=== PATIENT | male | born 1945 | race Caucasian/White ===

== ENCOUNTER 2018-10-07 10:17 | Inpatient (IN) | payer OTHER, MEDICARE ==
[2018-10-07] MEDS ORDERED: NORMAL SALINE 1000 ML 1,000 ML IV ONE (11:06)
[2018-10-07] MEDS ORDERED: ONDANSETRON HCL INJ/PF 4 MG/2 ML SDV IV ONE (11:06)
--- NOTE | 2018-10-07 11:07 | ER Document Report ---
ED Medical Screen (RME) - General Chief Complaint: Chest Pain Stated Complaint: CHEST PAIN, STOMACH PAIN Time Seen by Provider: 10/07/18 11:02 Primary Care Provider: EMERALD CRAIG MD [Primary Care Provider] - Follow up as needed TRAVEL OUTSIDE OF THE [place] IN LAST 30 DAYS: No - HPI Patient complains to provider of: Abdominal pain, chest pain Notes: 10/07/18 11:07 Patient is a 72-year-old male presenting to the emergency room today complaining of lower abdominal pain that has been present for the past few days with decreased appetite as well as nausea and vomiting, he also complains of left- sided chest pain which he states is more chronic in nature but dull and achy with associated shortness of breath 10/07/18 11:07 RAPID MEDICAL EVALUATION DISCLOSURE I have seen this patient as part of a Rapid Medical Evaluation and, if applicable, placed any initially appropriate orders. The patient will be seen and fully evaluated, including a full history and physical exam, by a provider (in Main ED or Fast Track) when a room becomes available. - Related Data Allergies/Adverse Reactions: aspirin Allergy (Verified 10/07/18 10:23) Iodinated Contrast- Oral and IV Dye Allergy (Verified 10/07/18 10:23) Physical Exam - Vital signs Vitals: Temp Pulse Resp BP Pulse Ox 98.3 F 64 17 168/68 H 98 10/07/18 10:51 10/07/18 10:51 10/07/18 10:51 10/07/18 10:51 10/07/18 10:51 Course - Vital Signs Vital signs: Temp Pulse Resp BP Pulse Ox 98.3 F 64 17 168/68 H 98 10/07/18 10:51 10/07/18 10:51 10/07/18 10:51 10/07/18 10:51 10/07/18 10:51 Doctor's Discharge - Discharge Referrals: EMERALD CRAIG MD [Primary Care Provider] - Follow up as needed
--- NOTE | 2018-10-07 11:38 | RADIOLOGY REPORT (SQ) ---
EXAM DESCRIPTION: CHEST 2 VIEWS COMPLETED DATE/TIME: 10/07/2018 11:28 am REASON FOR STUDY: chest pain COMPARISON: 03/20/2016 EXAM PARAMETERS: NUMBER OF VIEWS: two views TECHNIQUE: Digital Frontal and Lateral radiographic views of the chest acquired. RADIATION DOSE: NA LIMITATIONS: none FINDINGS: LUNGS AND PLEURA: No opacities, masses or pneumothorax. No pleural effusion. MEDIASTINUM AND HILAR STRUCTURES: No masses or contour abnormalities. HEART AND VASCULAR STRUCTURES: Heart normal size. No evidence for failure. BONES: No acute findings. HARDWARE: None in the chest. OTHER: No other significant finding. IMPRESSION: NO ACUTE RADIOGRAPHIC FINDING IN THE CHEST. TECHNICAL DOCUMENTATION: JOB ID: [id number] [employer]- All Rights Reserved Reading location - IP/workstation name: [email or web address]
[2018-10-07 12:00] LABS: ABSOLUTE MONOCYTES (AUTO) 0.3 10^3/uL (0.1-1.4); ABSOLUTE NEUT (AUTO) 11.9 10^3/uL (1.7-8.2); BASOPHILS % (AUTO) 0.4 % (0-2); EOSINOPHILS % (AUTO) 0.1 % (0-6); HEMATOCRIT 44.8 % (37.9-51.0); HEMOGLOBIN 15.4 g/dL (13.5-17.0); LYMPHOCYTES % (AUTO) 7.7 % (13-45); MEAN CORPUSCULAR HEMOGLOBIN 30.4 pg (27.0-33.4); MEAN CORPUSCULAR HGB CONC 34.3 g/dL (32.0-36.0); MEAN CORPUSCULAR VOLUME 88 fl (80-97); MONOCYTES % (AUTO) 2.6 % (3-13); PLATELET COUNT 167 10^3/uL (150-450); RED BLOOD COUNT 5.07 10^6/uL (4.35-5.55); RED CELL DISTRIBUTION WIDTH 13.9 % (11.5-14.0); SEGMENTED NEUTROPHILS % (AUTO) 89.2 % (42-78); TOTAL CELLS COUNTED % (AUTO) 100 %; WHITE BLOOD COUNT 13.3 10^3/uL (4.0-10.5)
[2018-10-07 12:06] LABS: AMORPHOUS SEDIMENT,URINE TRACE /HPF; APPEARANCE,URINE SLIGHTLY-CLOUDY; BILIRUBIN,URINE NEGATIVE (NEGATIVE); COLOR,URINE YELLOW; GLUCOSE, URINE 50 mg/dL (NEGATIVE); KETONES,URINE 20 mg/dL (NEGATIVE); LEUKOCYTE ESTERASE,URINE NEGATIVE (NEGATIVE); NITRITE,URINE NEGATIVE (NEGATIVE); PROTEIN,URINE NEGATIVE (NEGATIVE); URINE SPECIFIC GRAVITY 1.021; UROBILINOGEN,URINE NEGATIVE mg/dL (<2.0)
[2018-10-07] MEDS ORDERED: GLYCOPYRROLATE 1 MG/5 ML SYRINGE ONE (12:47)
[2018-10-07] MEDS ORDERED: NEOSTIGMINE METHYLSULFATE 10 MG/10 ML VIAL ONE (12:47)
[2018-10-07] MEDS ORDERED: KETOROLAC TROMETHAMINE 60 MG/2 ML SDV ONE (12:47)
[2018-10-07] MEDS ORDERED: ONDANSETRON HCL INJ/PF 4 MG/2 ML SDV ONE (12:47)
[2018-10-07] MEDS ORDERED: DEXAMETHASONE SOD PHOSPHATE INJ 4 MG/1 ML VIAL ONE (12:47)
[2018-10-07] MEDS ORDERED: METOCLOPRAMIDE HCL INJ/PF 10 MG/2 ML SDV ONE (12:47)
--- NOTE | 2018-10-07 14:39 | ER Document Report ---
ED GI/ - General Chief Complaint: Chest Pain Stated Complaint: CHEST PAIN, STOMACH PAIN Time Seen by Provider: 10/07/18 11:02 Mode of Arrival: Ambulatory Information source: Patient Notes: Patient is a 72 year old male with a history of DM, HTN, and WPW presenting to the emergency department with complaints of a constant, sharp RLQ abdominal pain that began 3 days ago. Patient reports nausea and vomiting starting this morning but denies any other associated symptoms. Patient reports being able to eat and drink okay. He states that this last normal BM was yesterday. He states that he tried to take Tylenol for the pain this morning but that it did not provide any relief. Patient reports some frequent urination, but denies burning and dysuria. He denies fever, chills, diarrhea. TRAVEL OUTSIDE OF THE [place] IN LAST 30 DAYS: No - HPI Patient complains to provider of: Abdominal pain Onset: Other - x3 days Quality of pain: Sharp Location: RLQ Associated symptoms: Nausea, Vomiting Similar symptoms previously: No - Related Data Allergies/Adverse Reactions: aspirin Allergy (Verified 10/07/18 10:23) Iodinated Contrast- Oral and IV Dye Allergy (Verified 10/07/18 10:23) Past Medical History - General Information source: Patient - Social History Smoking Status: Former Smoker Frequency of alcohol use: None Drug Abuse: None Family History: Reviewed & Not Pertinent Patient has suicidal ideation: No Patient has homicidal ideation: No - Past Medical History Cardiac Medical History: Reports: Hx Hypertension Endocrine Medical History: Reports: Hx Diabetes Mellitus Type 2 Renal/ Medical History: Denies: Hx Peritoneal Dialysis Past Surgical History: Reports: Hx Cholecystectomy Review of Systems - Review of Systems Notes: My medical REVIEW OF SYSTEMS: CONSTITUTIONAL : Denies or sweats. Denies recent illness. Denies weight loss, recent hospitalizations. EENT: Denies visual changes, eye pain. Denies sore throat, oral lesions, di fficulty swallowing. CARDIOVASCULAR: Denies chest pain. Denies palpitations. Denies lower extremity edema. RESPIRATORY: Denies cough. Denies shortness of breath, wheezing. GASTROINTESTINAL: Denies abdominal distention. Denies diarrhea. Denies blood in vomitus, stools, or per rectum. Denies black, tarry stools. Denies constipation. GENITOURINARY: Denies difficulty urinating, painful urination, frequency, blood in urine, testicular pain or penile discharge. MUSCULOSKELETAL: Denies back or neck pain or stiffness. Denies joint pain or swelling. SKIN: Denies rash, lesions or sores. HEMATOLOGIC : Denies easy bruising or bleeding. LYMPHATIC: Denies swollen glands. NEUROLOGICAL: Denies confusion or altered mental status. Denies loss of consciousness. Denies dizziness or lightheadedness. Denies headache. Denies weakness or paralysis. Denies problems difficulty with ambulation, slurred speech. Denies sensory loss, numbness, or tingling. Denies seizures. PSYCHIATRIC: Denies anxiety or stress. Denies depression, suicidal ideation, or Physical Exam - Vital signs Vitals: Temp Pulse Resp BP Pulse Ox 98.3 F 64 17 168/68 H 98 10/07/18 10:51 10/07/18 10:51 10/07/18 10:51 10/07/18 10:51 10/07/18 10:51 Interpretation: Hypertensive - Notes Notes: PHYSICAL EXAMINATION: GENERAL: Well-appearing, well-nourished and in no acute distress. HEAD: Atraumatic, normocephalic. EYES: Pupils equal round and reactive to light, extraocular movements intact, sclera anicteric, conjunctiva are normal. ENT: Nares patent, oropharynx clear without exudates. Moist mucous membranes. NECK: Normal range of motion, supple without lymphadenopathy LUNGS: Breath sounds clear to auscultation bilaterally and equal. No wheezes rales or rhonchi. HEART: Regular rate and rhythm without murmurs ABDOMEN: Soft, right lower quadrant tenderness with palpation nondistended abdomen. No guarding, no rebound. No masses appreciated. Musculoskeletal: Normal range of motion, no pitting or edema. No cyanosis. NEUROLOGICAL: Cranial nerves grossly intact. Normal speech, normal gait. Normal sensory, motor exams PSYCH: Normal mood, normal affect. SKIN: Warm, Dry, normal turgor, no rashes or lesions noted. Course - Re-evaluation Re-evalutation: 10/07/18 18:54 Laboratory 10/07/18 10/07/18 10/07/18 11:48 11:48 11:48 WBC 13.3 H RBC 5.07 Hgb 15.4 Hct 44.8 MCV 88 MCH 30.4 MCHC 34.3 RDW 13.9 Plt Count 167 Seg Neutrophils % 89.2 H Lymphocytes % 7.7 L Monocytes % 2.6 L Eosinophils % 0.1 Basophils % 0.4 Absolute Neutrophils 11.9 H Absolute Lymphocytes 1.0 Absolute Monocytes 0.3 Absolute Eosinophils 0.0 Absolute Basophils 0.0 Sodium Cancelled Potassium Cancelled Chloride Cancelled Carbon Dioxide Cancelled Anion Gap Cancelled BUN Cancelled Creatinine Cancelled Est GFR ( Amer) Cancelled Est GFR (Non-Af Amer) Cancelled Glucose Cancelled Calcium Cancelled Total Bilirubin Cancelled Direct Bilirubin Cancelled Neonat Total Bilirubin Cancelled Neonat Direct Bilirubin Cancelled Neonat Indirect Bili Cancelled AST Cancelled ALT Cancelled Alkaline Phosphatase Cancelled Troponin I Cancelled NT-Pro-B Natriuret Pep Cancelled Total Protein Cancelled Albumin Cancelled Lipase Cancelled Urine Color Urine Appearance Urine pH Ur Specific [place] Urine Protein Urine Glucose (UA) Urine Ketones Urine Blood Urine Nitrite Urine Bilirubin Urine Urobilinogen Ur Leukocyte Esterase Urine WBC (Auto) Urine RBC (Auto) Squamous Epi Cells Auto Amorphous Sediment Auto Urine Mucus (Auto) Urine Ascorbic Acid 10/07/18 10/07/18 10/07/18 11:48 14:55 14:55 WBC RBC Hgb Hct MCV MCH MCHC RDW Plt Count Seg Neutrophils % Lymphocytes % Monocytes % Eosinophils % Basophils % Absolute Neutrophils Absolute Lymphocytes Absolute Monocytes Absolute Eosinophils Absolute Basophils Sodium 138.0 Potassium 3.7 Chloride 101 Carbon Dioxide 26 Anion Gap 11 BUN 11 Creatinine 0.70 Est GFR ( Amer) > 60 Est GFR (Non-Af Amer) > 60 Glucose 197 H Calcium 9.0 Total Bilirubin 1.2 Direct Bilirubin 0.2 Neonat Total Bilirubin Not Reportable Neonat Direct Bilirubin Not Reportable Neonat Indirect Bili Not Reportable AST 24 ALT 23 Alkaline Phosphatase 65 Troponin I < 0.012 NT-Pro-B Natriuret Pep 162 Total Protein 7.0 Albumin 4.0 Lipase 10.5 L Urine Color YELLOW Urine Appearance SLIGHTLY-CLOUDY Urine pH 7.0 Ur Specific [place] 1.021 Urine Protein NEGATIVE Urine Glucose (UA) 50 H Urine Ketones 20 H Urine Blood NEGATIVE Urine Nitrite NEGATIVE Urine Bilirubin NEGATIVE Urine Urobilinogen NEGATIVE Ur Leukocyte Esterase NEGATIVE Urine WBC (Auto) 1 Urine RBC (Auto) 4 Squamous Epi Cells Auto 1 Amorphous Sediment Auto TRACE Urine Mucus (Auto) RARE Urine Ascorbic Acid NEGATIVE Chest X-Ray 10/07/18 11:06 IMPRESSION: NO ACUTE RADIOGRAPHIC FINDING IN THE CHEST. Abdomen/Pelvis CT 10/07/18 14:27 IMPRESSION: Appendicitis. No abscess. Mild fatty infiltration of the liver. Nonobstructing left renal calculi. Mild diverticulosis coli. Temp Pulse Resp BP Pulse Ox 98.3 F 64 21 H 161/70 H 93 10/07/18 10:51 10/07/18 10:51 10/07/18 18:17 10/07/18 18:17 10/07/18 18:17 10/08/18 00:26 72-year-old male presents with right lower quadrant abdominal pain. Upon arrival vitals were reviewed and patient is afebrile, hypertensive. Patient does not appear toxic or dehydrated. He did no acute distress. Exam is significant for tenderness with palpation to the right lower quadrant. CT of the abdomen and pelvis show appendicitis. Dr. Dewitt surgery on-call was consulted and has admitted the patient to the OR. Patient was made n.p.o., Zosyn was administered and LR was initiated. Patient and made aware of the situation. Patient admitted to surgery. - Vital Signs Vital signs: Temp Pulse Resp BP Pulse Ox 98.3 F 64 21 H 161/70 H 93 10/07/18 10:51 10/07/18 10:51 10/07/18 18:17 10/07/18 18:17 10/07/18 18:17 - Laboratory Result Diagrams: 10/07/18 11:48 10/07/18 14:55 Laboratory results interpreted by me: 10/07/18 10/07/18 10/07/18 11:48 11:48 14:55 WBC 13.3 H Seg Neutrophils % 89.2 H Lymphocytes % 7.7 L Monocytes % 2.6 L Absolute Neutrophils 11.9 H Glucose 197 H Lipase 10.5 L Urine Glucose (UA) 50 H Urine Ketones 20 H - Diagnostic Test Radiology reviewed: Image reviewed, Reports reviewed - EKG Interpretation by [facility] EKG shows normal: Sinus rhythm Rate: Normal Rhythm: NSR When compared to previous EKG there are: Previous EKG unavailable Discharge - Discharge Clinical Impression: Appendicitis Qualifiers: Appendicitis type: unspecified Qualified Code(s): K37 - Unspecified appendicitis Type 2 diabetes mellitus Qualifiers: Diabetes mellitus longterm insulin use: unspecified emt intermediate insulin use status Diabetes mellitus complication status: without complication Qualified Code(s): E11.9 - Type 2 diabetes mellitus without complications Hypertension Qualifiers: Hypertension type: unspecified Qualified Code(s): I10 - Essential (primary) hypertension Condition: Good Disposition: ADMITTED INPATIENT Admitting Provider: Surgicalist Unit Admitted: OR
[2018-10-07 15:30] LABS: ALANINE AMINOTRANSFERASE 23 U/L (21-72); ALKALINE PHOSPHATASE 65 U/L (38-126); ANION GAP 11 (5-19); ASPARTATE AMINO TRANSFERASE 24 U/L (17-59); BILIRUBIN,DIRECT 0.2 mg/dL (0.0-0.4); BILIRUBIN,TOTAL 1.2 mg/dL (0.2-1.3); BLOOD UREA NITROGEN 11 mg/dL (7-20); CARBON DIOXIDE 26 mmol/L (22-30); CHLORIDE 101 mmol/L (98-107); GLUCOSE 197 mg/dL (75-110); LIPASE 10.5 U/L (23-300); POTASSIUM 3.7 mmol/L (3.6-5.0)
[2018-10-07 15:43] LABS: NT PRO BNP 162 pg/mL (5-900)
[2018-10-07 15:49] LABS: TROPONIN I < 0.012 ng/mL
[2018-10-07] MEDS ORDERED: FAMOTIDINE INJ/PF 20 MG/2 ML SDV IV ONE (16:58)
[2018-10-07] MEDS ORDERED: DIPHENHYDRAMINE HCL 50 MG/ML VIAL IV ONE (16:58)
[2018-10-07] MEDS ORDERED: METHYLPREDNISOLONE INJ 125 MG/2 ML SDV IV ONE (16:58)
--- NOTE | 2018-10-07 18:24 | RADIOLOGY REPORT (SQ) ---
EXAM DESCRIPTION: CT ABD/PELVIS WITH IV ONLY COMPLETED DATE/TIME: 10/07/2018 6:11 pm REASON FOR STUDY: rlq pain COMPARISON: None. TECHNIQUE: CT scan of the abdomen and pelvis performed using helical scanning technique with dynamic intravenous contrast injection. No oral contrast. Images reviewed with lung, soft tissue, and bone windows. Reconstructed coronal and sagittal MPR images reviewed. Delayed images for evaluation of the urinary system also acquired. All images stored on PACS. All CT scanners at this facility use dose modulation, iterative reconstruction, and/or weight based d osing when appropriate to reduce radiation dose to as low as reasonably achievable (ALARA). [facility]: Dose Right [facility]: CareDose [facility]: Dose Right [facility]: Teradose 4D [facility]: Karma Snap CONTRAST TYPE AND DOSE: contrast/concentration: Isovue 300.00 mg/ml; Total Contrast Delivered: 94.0 ml; Total Saline Delivered: 57.2 ml RENAL FUNCTION: BUN 11 creatinine 0.7 RADIATION DOSE: CT Rad equipment meets quality standard of care and radiation dose reduction techniq ues were employed. CTDIvol: 20.1 - 21.1 mGy. DLP: 2304 mGy-cm.. LIMITATIONS: None. FINDINGS: LOWER CHEST: No significant findings. No nodules or infiltrates. LIVER: The liver is mildly hypoattenuating. No masses. SPLEEN: Normal size. No focal lesions. PANCREAS: No masses. No significant calcifications. No adjacent inflammation or peripancreatic fluid collections. Pancreatic duct not dilated. GALLBLADDER: Surgically absent. ADRENAL GLANDS: No significant masses or asymmetry. RIGHT KIDNEY AND URETER: No solid masses. No significant calcifications. No hydronephrosis or hyd roureter. LEFT KIDNEY AND URETER: No solid masses. There are 2 small nonobstructing intrarenal calculi. No hydronephrosis or hydroureter. AORTA AND VESSELS: No aneurysm. No dissection. Renal arteries, SMA, celiac without stenosis. RETROPERITONEUM: No retroperitoneal adenopathy, hemorrhage or masses. BOWEL AND PERITONEAL CAVITY: Mild sigmoid diverticulosis no associated inflammation. APPENDIX: There is thickening of the appendix with stranding in the periappendiceal fat. There is no abscess. PELVIS: No mass. No free fluid. Normal bladder. ABDOMINAL WALL: No masses. No hernias. BONES: No significant or acute findings. OTHER: No other significant finding. IMPRESSION: Appendicitis. No abscess. Mild fatty infiltration of the liver. Nonobstructing left r enal calculi. Mild diverticulosis coli. TECHNICAL DOCUMENTATION: JOB ID: [id number] Quality ID # [id number]: Final reports with documentation of one or more dose reduction techniques (e.g., Au tomated exposure control, adjustment of the mA and/or kV according to patient size, use of iterative reconstruction technique) 2010 [employer]- All Rights Reserved Reading location - IP/workstation name: [email or web address]
[2018-10-07] MEDS ORDERED: RINGERS SOLUTION,LACTATED 1,000 ML IV ONE (19:08)
[2018-10-07] MEDS ORDERED: PIPERACILLIN/TAZOBACTAM 3.375 GM VIAL IV ONE (19:08)
[2018-10-07] MEDS ORDERED: MIDAZOLAM 2 MG/2 ML INJ ONE ×2 (19:25→23:54)
[2018-10-07] MEDS ORDERED: LIDOCAINE 2% INJ-PF (100 MG/5 ML) SYRINGE ONE (19:25)
[2018-10-07] MEDS ORDERED: HYDROMORPHONE HCL INJ/PF 2 MG/ML AMPULE ONE (19:25)
[2018-10-07] MEDS ORDERED: ACETAMINOPHEN 1,000 MG/100 ML RTUPB IV ONE (19:26)
[2018-10-07] MEDS ORDERED: PROPOFOL INJ 200 MG/20 ML VIAL IV ONE (19:26)
--- NOTE | 2018-10-07 19:26 | PDOC H&P ---
History of Present Illness Admission Date/PCP: 10/07/18 19:11 [facility] Patient complains of: abdominal pains History of Present Illness: ERIC LOUIS is a 72 year old male diabetic, hypertensive c/o RLQ pains 2 nights ago worse yesterday associated with nausea/vomiting. Had CT today showed acute appendicitis. Past Medical History Cardiac Medical History: Reports: Hypertension Endocrine Medical History: Reports: Diabetes Mellitus Type 2 Past Surgical History Past Surgical History: Reports: Cholecystectomy Social History Smoking Status: Former Smoker Family History Family History: Reviewed & Not Pertinent Parental Family History Reviewed: Yes - + DM Children Family History Reviewed: No Sibling(s) Family History Reviewed.: Yes - + DM Medication/Allergy Allergies/Adverse Reactions: aspirin Allergy (Verified 10/07/18 10:23) Iodinated Contrast- Oral and IV Dye Allergy (Verified 10/07/18 10:23) Review of Systems Constitutional: PRESENT: as per HPI, fever(s) Eyes: PRESENT: other - no visual/hearing changes Cardiovascular: PRESENT: chest pain Respiratory: PRESENT: cough Gastrointestinal: PRESENT: abdominal pain, nausea, vomiting Genitourinary: PRESENT: other - no dysuria Physical Exam Vital Signs: Temp Pulse Resp BP Pulse Ox 98.3 F 64 21 H 161/70 H 93 10/07/18 10:51 10/07/18 10:51 10/07/18 18:17 10/07/18 18:17 10/07/18 18:17 Intake & Output 10/06/18 10/07/18 10/08/18 06:59 06:59 06:59 Intake Total 1000 Balance 1000 Weight 107.9 kg General appearance: PRESENT: mild distress Head exam: PRESENT: atraumatic Eye exam: PRESENT: conjunctiva pink Mouth exam: PRESENT: dry mucosa Neck exam: PRESENT: full ROM Respiratory exam: PRESENT: clear to auscultation roger Cardiovascular exam: PRESENT: RRR Pulses: PRESENT: normal radial pulses Vascular exam: PRESENT: normal capillary refill GI/Abdominal exam: PRESENT: soft, tenderness - RLQ Rectal exam: PRESENT: deferred Extremities exam: PRESENT: full ROM Musculoskeletal exam: PRESENT: ambulatory Neurological exam: PRESENT: alert, oriented to person, oriented to place, oriented to time, oriented to situation Psychiatric exam: PRESENT: appropriate affect Skin exam: PRESENT: normal color, warm Results Laboratory Results: 10/07/18 11:48 10/07/18 14:55 10/07/18 10/07/18 10/07/18 11:48 11:48 11:48 WBC 13.3 H RBC 5.07 Hgb 15.4 Hct 44.8 MCV 88 MCH 30.4 MCHC 34.3 RDW 13.9 Plt Count 167 Seg Neutrophils % 89.2 H Lymphocytes % 7.7 L Monocytes % 2.6 L Eosinophils % 0.1 Basophils % 0.4 Absolute Neutrophils 11.9 H Absolute Lymphocytes 1.0 Absolute Monocytes 0.3 Absolute Eosinophils 0.0 Absolute Basophils 0.0 Sodium Cancelled Potassium Cancelled Chloride Cancelled Carbon Dioxide Cancelled Anion Gap Cancelled BUN Cancelled Creatinine Cancelled Est GFR ( Amer) Cancelled Est GFR (Non-Af Amer) Cancelled Glucose Cancelled Calcium Cancelled Total Bilirubin Cancelled AST Cancelled ALT Cancelled Alkaline Phosphatase Cancelled Total Protein Cancelled Albumin Cancelled Lipase Cancelled Urine Color YELLOW Urine Appearance SLIGHTLY-CLOUDY Urine pH 7.0 Ur Specific [place] 1.021 Urine Protein NEGATIVE Urine Glucose (UA) 50 H Urine Ketones 20 H Urine Blood NEGATIVE Urine Nitrite NEGATIVE Ur Leukocyte Esterase NEGATIVE Urine WBC (Auto) 1 Urine RBC (Auto) 4 10/07/18 14:55 WBC RBC Hgb Hct MCV MCH MCHC RDW Plt Count Seg Neutrophils % Lymphocytes % Monocytes % Eosinophils % Basophils % Absolute Neutrophils Absolute Lymphocytes Absolute Monocytes Absolute Eosinophils Absolute Basophils Sodium 138.0 Potassium 3.7 Chloride 101 Carbon Dioxide 26 Anion Gap 11 BUN 11 Creatinine 0.70 Est GFR ( Amer) > 60 Est GFR (Non-Af Amer) > 60 Glucose 197 H Calcium 9.0 Total Bilirubin 1.2 AST 24 ALT 23 Alkaline Phosphatase 65 Total Protein 7.0 Albumin 4.0 Lipase 10.5 L Urine Color Urine Appearance Urine pH Ur Specific [place] Urine Protein Urine Glucose (UA) Urine Ketones Urine Blood Urine Nitrite Ur Leukocyte Esterase Urine WBC (Auto) Urine RBC (Auto) 10/07/18 10/07/18 11:48 14:55 Troponin I Cancelled < 0.012 NT-Pro-B Natriuret Pep Cancelled 162 Impressions: Chest X-Ray 10/07/18 11:06 IMPRESSION: NO ACUTE RADIOGRAPHIC FINDING IN THE CHEST. Abdomen/Pelvis CT 10/07/18 14:27 IMPRESSION: Appendicitis. No abscess. Mild fatty infiltration of the liver. Nonobstructing left renal calculi. Mild diverticulosis coli. Assessment & Plan - Diagnosis (1) Hypertension Is this a current diagnosis for this admission?: Yes (2) Type 2 diabetes mellitus Is this a current diagnosis for this admission?: Yes - Time Time Spent: 30 to 50 Minutes - Inpatient Certification Medical Necessity: Need For IV Fluids, Need for Pain Control, Need for IV Antibiotics, Need for Surgery - Plan Summary Plan Summary: Start IV antibiotics Hydrate For Lap appendectomy
[2018-10-07] MEDS ORDERED: BUPIVACAINE HCL 0.25 % INJ/PF (2.5 MG/1 ML) 30 ML VIAL ONE (19:44)
[2018-10-07] MEDS ORDERED: ONDANSETRON HCL INJ/PF 4 MG/2 ML SDV IV PRN ×2 (20:57→23:12)
[2018-10-07] MEDS ORDERED: OXYCODONE-ACETAMINOPHEN 5-325 MG TABLET PO PRN ×2 (20:57)
[2018-10-07] MEDS ORDERED: FENTANYL CITRATE INJ/PF 100 MCG/2 ML AMPUL IV PRN ×3 (20:57)
[2018-10-07] MEDS ORDERED: MEPERIDINE HCL/PF INJ 25 MG/1 ML DISP.SYRIN IV PRN (20:57)
[2018-10-07] MEDS ORDERED: DIPHENHYDRAMINE HCL 50 MG/ML VIAL IV PRN (20:57)
[2018-10-07] MEDS ORDERED: PROMETHAZINE HCL INJ 25 MG/1 ML VIAL IV PRN ×2 (20:57)
[2018-10-07] MEDS: MIDAZOLAM 2 MG/2 ML INJ ONE ×2 (23:30→23:31)
[2018-10-08] MEDS ORDERED: CHLORPROMAZINE HCL INJ 25 MG/1 ML AMPULE ONE (00:02)
--- NOTE | 2018-10-08 00:12 | EKG REPORT ---
SEVERITY:- NORMAL ECG - SINUS RHYTHM : Confirmed by: Zahra Cavanaugh 08-Oct-2018 00:12:32
--- NOTE | 2018-10-08 01:21 | PDOC CONSULTATION ---
Consultation Consult Date: 10/07/18 Attending physician:: ADI DEWITT Consult reason:: Postanesthetic delirium with combative behavior History of Present Illness Admission Date/PCP: 10/07/18 19:[facility] Patient complains of: Abdominal pain History of Present Illness: ERIC BHAT is a 72 year old male who initially presented to the emergency room with a 2-day history of right lower quadrant abdominal pain progressive in intensity and accompanied by nausea and vomiting. He was found to have acute appendicitis on his CT scan of the abdomen and was subsequently taken to the operating room by Dr. Dewitt where an open appendectomy was performed. In his postoperative recovery as he gradually woke from his anesthetic he became very combative and delirious. With these findings the consultation for hospitalist was placed and I saw the patient within 10 minutes of the original phone call. Patient was found to be very poorly responsive to verbal stimuli and was quite combative requiring 5 persons to restrain him. He was unable to provide any further information into his medical situation and no other sources of information were immediately available. Current and past medical records have been used to obtain further information. Past Medical History Cardiac Medical History: Reports: Hypertension Denies: Coronary Artery Disease Pulmonary Medical History: Denies: Asthma, Chronic Obstructive Pulmonary Disease (COPD) EENT Medical History: Reports: None Neurological Medical History: Denies: Hemorrhagic CVA, Ischemic CVA, Seizures Endocrine Medical History: Reports: Diabetes Mellitus Type 2, Obesity Denies: Diabetes Mellitus Type 1, Hyperthyroidism, Hypothyroidism Renal/ Medical History: Denies: Chronic Kidney Disease, Nephrolithiasis Malignancy Medical History: Reports: None GI Medical History: Denies: Cirrhosis, Hepatitis Musculoskeltal Medical History: Reports: None Skin Medical History: Reports: None Psychiatric Medical History: Denies: Alcohol Dependency, Substance Abuse, Tobacco Dependency Traumatic Medical History: Reports: None Hematology: Reports: None Infectious Medical History: Reports: None Past Surgical History Past Surgical History: Reports: Appendectomy - Performed just prior to my evaluation, Cholecystectomy Social History Lives with: Family Smoking Status: Former Smoker Frequency of Alcohol Use: None Hx Recreational Drug Use: No Drugs: None Hx Prescription Drug Abuse: No - Advance Directive Resuscitation Status: Full Code Surrogate healthcare decision maker:: Family History Family History: DM, Hypertension Parental Family History Reviewed: Yes Children Family History Reviewed: No Sibling(s) Family History Reviewed.: Yes Medication/Allergy Allergies/Adverse Reactions: aspirin Allergy (Verified 10/07/18 10:23) Iodinated Contrast- Oral and IV Dye Allergy (Verified 10/07/18 10:23) Review of Systems ROS unobtainable: Due to mental status Physical Exam Vital Signs: Temp Pulse Resp BP Pulse Ox 98.3 F 64 21 H 161/70 H 95 10/07/18 10:51 10/07/18 10:51 10/07/18 18:17 10/07/18 18:17 10/08/18 01:03 Intake & Output 10/06/18 10/07/18 10/08/18 23:59 23:59 23:59 Intake Total 1000 Balance 1000 Weight 107.9 kg General appearance: PRESENT: disheveled, obese, severe distress, other - Combative and flailing, uncooperative Head exam: PRESENT: atraumatic, normocephalic Eye exam: PRESENT: conjunctiva pink. ABSENT: scleral icterus Ear exam: PRESENT: normal external ear exam. ABSENT: drainage Mouth exam: PRESENT: dry mucosa, neck supple Neck exam: ABSENT: thyromegaly, tracheal deviation Respiratory exam: PRESENT: clear to auscultation roger, symmetrical, unlabored Cardiovascular exam: PRESENT: RRR. ABSENT: clicks, gallop, rubs Pulses: PRESENT: normal radial pulses, normal dorsalis pedis pul Vascular exam: PRESENT: normal capillary refill. ABSENT: pallor GI/Abdominal exam: PRESENT: normal bowel sounds, soft, other - Large dressing present in the right lower quadrant not disturbed for my evaluation Rectal exam: PRESENT: deferred Gentrourinary exam: PRESENT: indwelling catheter. ABSENT: urethral discharge Extremities exam: ABSENT: joint swelling, pedal edema Musculoskeletal exam: ABSENT: deformity, dislocation Neurological exam: PRESENT: altered - Patient is awake but delirious and combative.. ABSENT: oriented to person, oriented to place, oriented to time, oriented to situation Psychiatric exam: PRESENT: agitated, other - Uncooperative, delirious and combative Skin exam: PRESENT: dry, intact, warm. ABSENT: jaundice, rash, urticaria Results Laboratory Results: 10/07/18 11:48 10/07/18 14:55 10/07/18 10/07/18 10/07/18 11:48 11:48 11:48 WBC 13.3 H RBC 5.07 Hgb 15.4 Hct 44.8 MCV 88 MCH 30.4 MCHC 34.3 RDW 13.9 Plt Count 167 Seg Neutrophils % 89.2 H Lymphocytes % 7.7 L Monocytes % 2.6 L Eosinophils % 0.1 Basophils % 0.4 Absolute Neutrophils 11.9 H Absolute Lymphocytes 1.0 Absolute Monocytes 0.3 Absolute Eosinophils 0.0 Absolute Basophils 0.0 Sodium Cancelled Potassium Cancelled Chloride Cancelled Carbon Dioxide Cancelled Anion Gap Cancelled BUN Cancelled Creatinine Cancelled Est GFR ( Amer) Cancelled Est GFR (Non-Af Amer) Cancelled Glucose Cancelled Calcium Cancelled Total Bilirubin Cancelled AST Cancelled ALT Cancelled Alkaline Phosphatase Cancelled Total Protein Cancelled Albumin Cancelled Lipase Cancelled Urine Color YELLOW Urine Appearance SLIGHTLY-CLOUDY Urine pH 7.0 Ur Specific [place] 1.021 Urine Protein NEGATIVE Urine Glucose (UA) 50 H Urine Ketones 20 H Urine Blood NEGATIVE Urine Nitrite NEGATIVE Ur Leukocyte Esterase NEGATIVE Urine WBC (Auto) 1 Urine RBC (Auto) 4 10/07/18 14:55 WBC RBC Hgb Hct MCV MCH MCHC RDW Plt Count Seg Neutrophils % Lymphocytes % Monocytes % Eosinophils % Basophils % Absolute Neutrophils Absolute Lymphocytes Absolute Monocytes Absolute Eosinophils Absolute Basophils Sodium 138.0 Potassium 3.7 Chloride 101 Carbon Dioxide 26 Anion Gap 11 BUN 11 Creatinine 0.70 Est GFR ( Amer) > 60 Est GFR (Non-Af Amer) > 60 Glucose 197 H Calcium 9.0 Total Bilirubin 1.2 AST 24 ALT 23 Alkaline Phosphatase 65 Total Protein 7.0 Albumin 4.0 Lipase 10.5 L Urine Color Urine Appearance Urine pH Ur Specific [place] Urine Protein Urine Glucose (UA) Urine Ketones Urine Blood Urine Nitrite Ur Leukocyte Esterase Urine WBC (Auto) Urine RBC (Auto) 10/07/18 10/07/18 11:48 14:55 Troponin I Cancelled < 0.012 NT-Pro-B Natriuret Pep Cancelled 162 Impressions: Chest X-Ray 10/07/18 11:06 IMPRESSION: NO ACUTE RADIOGRAPHIC FINDING IN THE CHEST. Abdomen/Pelvis CT 10/07/18 14:27 IMPRESSION: Appendicitis. No abscess. Mild fatty infiltration of the liver. Nonobstructing left renal calculi. Mild diverticulosis coli. Assessment & Plan - Diagnosis (1) Acute delirium Is this a current diagnosis for this admission?: Yes Plan: Patient's acute delirium was treated with IV Thorazine 25 mg every 8 hours as needed for control of agitation. (2) Acute appendicitis Is this a current diagnosis for this admission?: Yes Plan: Patient's acute appendicitis and postsurgical management will be performed by Dr. Dewitt (3) Hypertension Qualifiers: Hypertension type: essential hypertension Qualified Code(s): I10 - Essential (primary) hypertension Is this a current diagnosis for this admission?: Yes Plan: Patient is noted to have a history of essential hypertension however he was somewhat hypotensive postoperatively and this will be managed closely with IV fluid resuscitation and further intervention as required. (4) Diabetes mellitus type 2 in obese Is this a current diagnosis for this admission?: Yes Plan: Patient's diabetes will be managed postoperatively by the hospitalist team. We will start with sliding scale insulin only and add his usual diabetic therapy when he begins to take a diet. - Time Time Spent: 50 to 70 Minutes Smoking Cessation Education: over 10 minutes Medications reviewed and adjusted accordingly: Yes Anticipated discharge: Home - Inpatient Certification Based on my medical assessment, after consideration of the patient's comorbidities, presenting symptoms, or acuity I expect that the services needed warrant INPATIENT care.: Yes I certify that my determination is in accordance with my understanding of Medicare's requirements for reasonable and necessary INPATIENT services [42 CFR 412.3e].: Yes Medical Necessity: Significant Comorbidiites Make Outpatient Treatment Too Ris [place], Need Close Monitoring Due to Risk of Patient Decompensation, Need For IV Fluids, Need For Continuous Telemetry Monitoring, Need for Pain Control, Need for Surgery, Risk of Complication if Not Cared For in Hospital, Risk of Diagnosis Which Will Require Inpatient Eval/Care/Monitoring - Plan Summary Plan Summary: I would like to thank Dr. Dewitt for his kindness in inviting us to participate in the management of Mr. Bhat.
[2018-10-08] MEDS ORDERED: DEXTROSE 40% GEL 15 GM TUBE PO PRN ×2 (02:30)
[2018-10-08] MEDS ORDERED: DEXTROSE 50%-WATER 25 GM/50 ML DISP.SYRIN IV PRN ×2 (02:30)
[2018-10-08] MEDS ORDERED: CHLORPROMAZINE HCL INJ 25 MG/1 ML AMPULE IV PRN (02:30)
[2018-10-08] MEDS ORDERED: ACETAMINOPHEN 650 MG SUPP.RECT PR PRN (02:30)
[2018-10-08] MEDS ORDERED: ACETAMINOPHEN 325 MG TABLET PO PRN (02:30)
[2018-10-08] MEDS ORDERED: GLUCAGON,HUMAN RECOMB 1 MG INJ IM PRN (02:30)
[2018-10-08] MEDS: PIPERACILLIN SODIUM/TAZOBACTAM 3.375 GM in NORMAL SALINE 100 ML IV SCH ×4 (03:25→18:12)
[2018-10-08] MEDS: KETOROLAC TROMETHAMINE INJ/PF 30 MG/1 ML SDV IV SCH ×4 (03:25→18:12)
[2018-10-08] MEDS ORDERED: PIPERACILLIN/TAZOBACTAM 3.375 GM VIAL IV ONE (03:41)
--- NOTE | 2018-10-08 03:43 | OPERATIVE REPORT E ---
Operative Report NAME: ERIC LOUIS : 1945 AGE: 72Y DATE OF SURGERY: 10/07/2018 ROOM: 609 PREOPERATIVE DIAGNOSIS: ACUTE APPENDICITIS. POSTOPERATIVE DIAGNOSIS: ACUTE APPENDICITIS. OPERATION: Attempted laparoscopic appendectomy, open appendectomy. SURGEON: ADI POST M.D. ANESTHESIA: General. INDICATION: This is a 72-year-old male who complained of right lower quadrant pains for the past 48 hours. He went to ED, where a CAT scan revealed acute appendicitis. He was tender in the right lower quadrant. PROCEDURE: After adequate general anesthesia, the patient was placed in supine position and the abdomen prepped and draped in the usual sterile fashion. Appropriate time-out was then called. An infraumbilical incision was made and the fascia identified and grasped with the Kaiden clamps and put 0 Vicryl sutures in between the Kaiden clamps, and blunt dissection through the fascia with the index finger was done and Diamante trocar was then inserted. CO2 insufflated to 15 mmHg and 2 other trocars were placed, a 5 mm in the suprapubic and a 12 mm in the left lower quadrant. Next, the appendix was then identified and noted to be inflamed, but quite friable. An attempt was done to grab the appendix, but somehow I was not able to get a good view of the appendix. I encountered considerable amount of bleeding. Because of this, the procedure was then converted to an open. A McBurney incision was made and thick subcutaneous fat divided with cautery. The fascia was then identified and divided and the external oblique muscle identified and and the posterior fascia opened. Appendix was then identified and noted to be markedly inflamed. With gentle dissection, the base of the appendix was then identified, but prior to this the appendix was quite difficult, very friable, that it was torn in at least 3 pieces. The base of the appendix was then identified and noted to be not involved with the inflammation and release of TA-30 was then divided, stapled, and shaved sharply from the staple travel pt. The staple travel pt was released and there was good hemostasis noted of the appendiceal stump. The area was then copiously irrigated with saline solution. No active bleeding was noted. At least 4 L of saline was used to irrigate the abdominal cavity, but primarily around the pelvic area. A Deon drain was then passed through the suprapubic port and anchored to the skin with 2-0 silk. The drain was placed on the appendiceal area. Next, the posterior fascia was then closed with running suture using 0 Vicryl and the anterior fascia also closed with 0 Vicryl. The subcutaneous was then irrigated and multiple sutures of 2-0 nylon were placed on the skin and subcutaneous, and the wound was then packed with 2 bottles of 1/2-inch Iodoform gauze. The umbilical fascial defect was then closed with a [id number] suture using 0 Vicryl and all the skin incisions were then closed with subcuticular 4-0 undyed for the umbilical incision and the left lateral incision. A sterile dressing was placed over the operative sites. Needle, instrument, and sponge counts were all correct. Estimated blood loss about 100 mL. The patient then brought to the recovery room extubated in satisfactory condition. DICTATING PHYSICIAN: ADI POST M.D. [id number] PHY#: [id number] ID: [id number] JOB#: [id number] ACCT: [id number] cc:ADI POST M.D. > MTDD
[2018-10-08 04:24] LABS: ABSOLUTE LYMPHOCYTES (AUTO) 0.9 10^3/uL (0.5-4.7); ABSOLUTE MONOCYTES (AUTO) 1.3 10^3/uL (0.1-1.4); ABSOLUTE NEUT (AUTO) 9.5 10^3/uL (1.7-8.2); BASOPHILS % (AUTO) 0.1 % (0-2); HEMATOCRIT 36.6 % (37.9-51.0); LYMPHOCYTES % (AUTO) 7.6 % (13-45); MEAN CORPUSCULAR HEMOGLOBIN 29.9 pg (27.0-33.4); MEAN CORPUSCULAR VOLUME 88 fl (80-97); MONOCYTES % (AUTO) 11.2 % (3-13); PLATELET COUNT 124 10^3/uL (150-450); RED BLOOD COUNT 4.16 10^6/uL (4.35-5.55); RED CELL DISTRIBUTION WIDTH 14.3 % (11.5-14.0); SEGMENTED NEUTROPHILS % (AUTO) 81.1 % (42-78); TOTAL CELLS COUNTED % (AUTO) 100 %; WHITE BLOOD COUNT 11.7 10^3/uL (4.0-10.5)
[2018-10-08 04:25] LABS: HEMOGLOBIN 12.4 g/dL (13.5-17.0)
[2018-10-08 04:49] LABS: ANION GAP 15 (5-19); BLOOD UREA NITROGEN 18 mg/dL (7-20); CALCIUM 8.4 mg/dL (8.4-10.2); CARBON DIOXIDE 19 mmol/L (22-30); CHLORIDE 102 mmol/L (98-107); GLUCOSE 289 mg/dL (75-110); POTASSIUM 3.7 mmol/L (3.6-5.0); SODIUM 136.2 mmol/L (137-145)
[2018-10-08] MEDS: INSULIN REG, HUMAN 100 UNIT/ML 3 ML VIAL (PYX) SUBCUT SCH ×3 (05:42→18:11)
[2018-10-08] MEDS: NORMAL SALINE 1000 ML 1,000 ML IV PRN ×2 (10:59→18:49)
[2018-10-08] MEDS: ENOXAPARIN SODIUM INJ 40 MG/0.4 ML DISP.SYRIN SUBCUT SCH (11:17)
--- NOTE | 2018-10-08 12:41 | PDOC PROGRESS REPORT ---
Subjective Progress Note for:: 10/08/18 Subjective:: Back to normal mental state. Hungry Reason For Visit: APPENDICITIS Physical Exam Vital Signs: Temp Pulse Resp BP Pulse Ox 99.4 F 84 16 107/55 L 95 10/08/18 11:23 10/08/18 11:42 10/08/18 11:23 10/08/18 11:23 10/08/18 11:00 Intake & Output 10/07/18 10/08/18 10/09/18 06:59 06:59 06:59 Intake Total 7120 Output Total 4945 185 Balance 2175 -185 Weight 109.6 kg Exam: abdomen is soft and non tender OK drained serosanguinous fluid 30 ccs Results Laboratory Results: 10/08/18 04:13 10/08/18 04:13 10/07/18 10/08/18 10/08/18 14:55 04:13 04:13 WBC 11.7 H RBC 4.16 L Hgb 12.4 L D Hct 36.6 L MCV 88 MCH 29.9 MCHC 34.0 RDW 14.3 H Plt Count 124 L Seg Neutrophils % 81.1 H Lymphocytes % 7.6 L Monocytes % 11.2 Eosinophils % 0.0 Basophils % 0.1 Absolute Neutrophils 9.5 H Absolute Lymphocytes 0.9 Absolute Monocytes 1.3 Absolute Eosinophils 0.0 Absolute Basophils 0.0 Sodium 138.0 136.2 L Potassium 3.7 3.7 Chloride 101 102 Carbon Dioxide 26 19 L Anion Gap 11 15 BUN 11 18 Creatinine 0.70 1.19 Est GFR ( Amer) > 60 > 60 Est GFR (Non-Af Amer) > 60 > 60 Glucose 197 H 289 H Calcium 9.0 8.4 Total Bilirubin 1.2 AST 24 ALT 23 Alkaline Phosphatase 65 Total Protein 7.0 Albumin 4.0 Lipase 10.5 L 10/07/18 10/07/18 11:48 14:55 Troponin I Cancelled < 0.012 NT-Pro-B Natriuret Pep Cancelled 162 Impressions: Chest X-Ray 10/07/18 11:06 IMPRESSION: NO ACUTE RADIOGRAPHIC FINDING IN THE CHEST. Abdomen/Pelvis CT 10/07/18 14:27 IMPRESSION: Appendicitis. No abscess. Mild fatty infiltration of the liver. Nonobstructing left renal calculi. Mild diverticulosis coli. Assessment & Plan - Diagnosis (1) Hypertension Qualifiers: Hypertension type: essential hypertension Qualified Code(s): I10 - Essential (primary) hypertension Is this a current diagnosis for this admission?: Yes (2) Type 2 diabetes mellitus Qualifiers: Diabetes mellitus halfway insulin use: unspecified superintendent container terminal insulin use status Diabetes mellitus complication status: without complication Qualified Code(s): E11.9 - Type 2 diabetes mellitus without complications Is this a current diagnosis for this admission?: Yes - Time Time Spent with patient: 15-24 minutes - Inpatient Certification Medical Necessity: Need For IV Fluids, Need for IV Antibiotics - Plan Summary Plan Summary: Transfer out of ICU Start Clears and advance as tolerated Check incision with packing tomorrow and possible delayed primary closure. Left untied skin sutures. Can just close wound at bedside in 24-48 hrs. Continue IV antibiotics
[2018-10-09] MEDS: PIPERACILLIN SODIUM/TAZOBACTAM 3.375 GM in NORMAL SALINE 100 ML IV SCH ×4 (00:30→18:25)
[2018-10-09] MEDS: INSULIN REG, HUMAN 100 UNIT/ML 3 ML VIAL (PYX) SUBCUT SCH ×4 (00:31→18:37)
[2018-10-09] MEDS: KETOROLAC TROMETHAMINE INJ/PF 30 MG/1 ML SDV IV SCH ×4 (00:31→18:26)
[2018-10-09] MEDS: NORMAL SALINE 1000 ML 1,000 ML IV PRN ×2 (02:51→12:13)
[2018-10-09 05:17] LABS: ABSOLUTE LYMPHOCYTES (AUTO) 1.2 10^3/uL (0.5-4.7); ABSOLUTE MONOCYTES (AUTO) 0.8 10^3/uL (0.1-1.4); ABSOLUTE NEUT (AUTO) 8.5 10^3/uL (1.7-8.2); BASOPHILS % (AUTO) 0.2 % (0-2); EOSINOPHILS % (AUTO) 0.2 % (0-6); HEMATOCRIT 32.2 % (37.9-51.0); HEMOGLOBIN 11.3 g/dL (13.5-17.0); MEAN CORPUSCULAR HEMOGLOBIN 30.9 pg (27.0-33.4); MEAN CORPUSCULAR HGB CONC 35.1 g/dL (32.0-36.0); MEAN CORPUSCULAR VOLUME 88 fl (80-97); MONOCYTES % (AUTO) 7.5 % (3-13); PLATELET COUNT 108 10^3/uL (150-450); RED BLOOD COUNT 3.65 10^6/uL (4.35-5.55); RED CELL DISTRIBUTION WIDTH 14.2 % (11.5-14.0); SEGMENTED NEUTROPHILS % (AUTO) 81.1 % (42-78); TOTAL CELLS COUNTED % (AUTO) 100 %; WHITE BLOOD COUNT 10.5 10^3/uL (4.0-10.5)
--- NOTE | 2018-10-09 06:54 | PDOC PROGRESS REPORT ---
Subjective Progress Note for:: 10/08/18 Subjective:: Patient resting comfortably this morning. He is in no distress. He is awake alert and oriented. Reason For Visit: APPENDICITIS Postanesthesia delirium Physical Exam Vital Signs: Temp Pulse Resp BP Pulse Ox 98.4 F 78 19 103/50 L 97 10/08/18 08:00 10/08/18 08:00 10/08/18 08:00 10/08/18 08:00 10/08/18 08:00 Intake & Output 10/07/18 10/08/18 10/09/18 06:59 06:59 06:59 Intake Total 7020 Output Total 4945 85 Balance 2074 - Weight 109.6 kg General appearance: PRESENT: no acute distress, cooperative, well-developed Head exam: PRESENT: atraumatic, normocephalic Eye exam: PRESENT: conjunctiva pink. ABSENT: scleral icterus Ear exam: PRESENT: normal external ear exam Mouth exam: PRESENT: moist, tongue midline Respiratory exam: PRESENT: symmetrical, unlabored. ABSENT: accessory muscle use, rales, rhonchi, wheezes Cardiovascular exam: PRESENT: RRR, +S1, +S2 GI/Abdominal exam: PRESENT: normal bowel sounds, soft, tenderness - Right lower and upper quadrants. This is the pain he was having prior to his surgery.. ABSENT: distended, guarding Rectal exam: PRESENT: deferred Extremities exam: ABSENT: pedal edema Musculoskeletal exam: PRESENT: normal inspection Neurological exam: PRESENT: alert, awake, oriented to person, oriented to place, oriented to time, oriented to situation Psychiatric exam: PRESENT: appropriate affect, normal mood. ABSENT: agitated, anxious Focused psych exam: ABSENT: delusional, restlessness Results Laboratory Results: 10/08/18 04:13 10/08/18 04:13 10/07/18 10/07/18 10/07/18 11:48 11:48 11:48 WBC 13.3 H RBC 5.07 Hgb 15.4 Hct 44.8 MCV 88 MCH 30.4 MCHC 34.3 RDW 13.9 Plt Count 167 Seg Neutrophils % 89.2 H Lymphocytes % 7.7 L Monocytes % 2.6 L Eosinophils % 0.1 Basophils % 0.4 Absolute Neutrophils 11.9 H Absolute Lymphocytes 1.0 Absolute Monocytes 0.3 Absolute Eosinophils 0.0 Absolute Basophils 0.0 Sodium Cancelled Potassium Cancelled Chloride Cancelled Carbon Dioxide Cancelled Anion Gap Cancelled BUN Cancelled Creatinine Cancelled Est GFR ( Amer) Cancelled Est GFR (Non-Af Amer) Cancelled Glucose Cancelled Calcium Cancelled Total Bilirubin Cancelled AST Cancelled ALT Cancelled Alkaline Phosphatase Cancelled Total Protein Cancelled Albumin Cancelled Lipase Cancelled Urine Color YELLOW Urine Appearance SLIGHTLY-CLOUDY Urine pH 7.0 Ur Specific [place] 1.021 Urine Protein NEGATIVE Urine Glucose (UA) 50 H Urine Ketones 20 H Urine Blood NEGATIVE Urine Nitrite NEGATIVE Ur Leukocyte Esterase NEGATIVE Urine WBC (Auto) 1 Urine RBC (Auto) 4 10/07/18 10/08/18 10/08/18 14:55 04:13 04:13 WBC 11.7 H RBC 4.16 L Hgb 12.4 L D Hct 36.6 L MCV 88 MCH 29.9 MCHC 34.0 RDW 14.3 H Plt Count 124 L Seg Neutrophils % 81.1 H Lymphocytes % 7.6 L Monocytes % 11.2 Eosinophils % 0.0 Basophils % 0.1 Absolute Neutrophils 9.5 H Absolute Lymphocytes 0.9 Absolute Monocytes 1.3 Absolute Eosinophils 0.0 Absolute Basophils 0.0 Sodium 138.0 136.2 L Potassium 3.7 3.7 Chloride 101 102 Carbon Dioxide 26 19 L Anion Gap 11 15 BUN 11 18 Creatinine 0.70 1.19 Est GFR ( Amer) > 60 > 60 Est GFR (Non-Af Amer) > 60 > 60 Glucose 197 H 289 H Calcium 9.0 8.4 Total Bilirubin 1.2 AST 24 ALT 23 Alkaline Phosphatase 65 Total Protein 7.0 Albumin 4.0 Lipase 10.5 L Urine Color Urine Appearance Urine pH Ur Specific [place] Urine Protein Urine Glucose (UA) Urine Ketones Urine Blood Urine Nitrite Ur Leukocyte Esterase Urine WBC (Auto) Urine RBC (Auto) 10/07/18 10/07/18 11:48 14:55 Troponin I Cancelled < 0.012 NT-Pro-B Natriuret Pep Cancelled 162 Impressions: Chest X-Ray 10/07/18 11:06 IMPRESSION: NO ACUTE RADIOGRAPHIC FINDING IN THE CHEST. Abdomen/Pelvis CT 10/07/18 14:27 IMPRESSION: Appendicitis. No abscess. Mild fatty infiltration of the liver. Nonobstructing left renal calculi. Mild diverticulosis coli. Assessment and Plan - Diagnosis (1) Acute delirium Is this a current diagnosis for this admission?: Yes Plan: 10/08/18 Secondary to acute appendicitis and general anesthesia. Patient appears to be back at baseline. Delirium resolved. 10/09/18 06:50 (2) Acute appendicitis Qualifiers: Acute appendicitis type: unspecified acute appendicitis type Qualified Code(s): K35.80 - Unspecified acute appendicitis Is this a current diagnosis for this admission?: Yes Plan: 10/08/18 Postop day 1. Review of surgical report reveals that appendix was markedly inflamed and fragmented. Pathology report is still pending. Patient is on Zosyn therapy. Management per surgery. 10/09/18 06:52 10/09/18 06:53 (3) Hypertension Qualifiers: Hypertension type: essential hypertension Qualified Code(s): I10 - Essential (primary) hypertension Is this a current diagnosis for this admission?: Yes Plan: 10/08/18 Blood pressures have actually been low. Monitor blood pressures and resume medications as clinically indicated. 10/09/18 06:53 (4) Type 2 diabetes mellitus Qualifiers: Diabetes mellitus superintendent terminal insulin use: unspecified superintendent terminal insulin use status Diabetes mellitus complication status: without complication Qualified Code(s): E11.9 - Type 2 diabetes mellitus without complications Is this a current diagnosis for this admission?: Yes Plan: 10/08/18 Continue Accu-Cheks and sliding scale coverage. 10/09/18 06:54 - Time Time Spent with patient: 15-24 minutes Medications reviewed and adjusted accordingly: Yes Anticipated discharge: Home
--- NOTE | 2018-10-09 09:34 | PDOC PROGRESS REPORT ---
<REBECA OGLESBY G - Last Filed: 10/09/18 09:25> Subjective Subjective:: Doing well, would like increased diet and would like to ambulate. 90cc of serosanginous drainage emptied last night per nurse Reason For Visit: APPENDICITIS Physical Exam Vital Signs: Temp Pulse Resp BP Pulse Ox 98.3 F 74 16 117/65 91 L 10/09/18 07:47 10/09/18 07:47 10/09/18 07:47 10/09/18 07:47 10/09/18 07:47 Intake & Output 10/08/18 10/09/18 10/10/18 06:59 06:59 06:59 Intake Total 7120 3351 Output Total 4945 790 Balance 2175 2561 Weight 109.6 kg 109.6 kg General appearance: PRESENT: no acute distress, cooperative. ABSENT: mild distress GI/Abdominal exam: PRESENT: other - Open abdominal wound with suture intact for delayed primary closure. Saturated iodoform and gauze dressing. Drain intact with serosanginous drainage. ABSENT: ascites, distended, guarding Results Laboratory Results: 10/09/18 04:16 10/08/18 04:13 10/09/18 04:16 WBC 10.5 RBC 3.65 L Hgb 11.3 L Hct 32.2 L MCV 88 MCH 30.9 MCHC 35.1 RDW 14.2 H Plt Count 108 L Seg Neutrophils % 81.1 H Lymphocytes % 11.0 L Monocytes % 7.5 Eosinophils % 0.2 Basophils % 0.2 Absolute Neutrophils 8.5 H Absolute Lymphocytes 1.2 Absolute Monocytes 0.8 Absolute Eosinophils 0.0 Absolute Basophils 0.0 10/07/18 11:48 Clean Catch Midstream Urine Culture - Final Enterococcus Faecalis(Group D) 10/07/18 10/07/18 11:48 14:55 Troponin I Cancelled < 0.012 NT-Pro-B Natriuret Pep Cancelled 162 Impressions: Chest X-Ray 10/07/18 11:06 IMPRESSION: NO ACUTE RADIOGRAPHIC FINDING IN THE CHEST. Abdomen/Pelvis CT 10/07/18 14:27 IMPRESSION: Appendicitis. No abscess. Mild fatty infiltration of the liver. Nonobstructing left renal calculi. Mild diverticulosis coli. Assessment & Plan - Diagnosis (1) Acute appendicitis Qualifiers: Acute appendicitis type: unspecified acute appendicitis type Qualified Code(s): K35.80 - Unspecified acute appendicitis Is this a current diagnosis for this admission?: Yes - Plan Summary Plan Summary: Joaquin Bhat 72 y/o diabetic male status post laparoscopic converted to open appendectomy. Doing well today would like ot increase diet and ambulate. PLAN: 1) Increase diet to full liquids 2) Incentive spirometry 3) Out of bed with assistance 4) Damp to dry dressing change BID. New dressing applied. <DEBBI MORLEY L - Last Filed: 10/09/18 18:05> Subjective Reason For Visit: APPENDICITIS Physical Exam Vital Signs: Temp Pulse Resp BP Pulse Ox 97.7 F 81 16 128/61 H 91 L 10/09/18 16:00 10/09/18 16:00 10/09/18 16:00 10/09/18 16:00 10/09/18 16:00 Intake & Output 10/08/18 10/09/18 10/10/18 06:59 06:59 06:59 Intake Total 7120 3351 1367 Output Total 9395 790 50 Balance 2175 2561 1317 Weight 109.6 kg 109.6 kg Results Laboratory Results: 10/09/18 04:16 10/08/18 04:13 10/09/18 04:16 WBC 10.5 RBC 3.65 L Hgb 11.3 L Hct 32.2 L MCV 88 MCH 30.9 MCHC 35.1 RDW 14.2 H Plt Count 108 L Seg Neutrophils % 81.1 H Lymphocytes % 11.0 L Monocytes % 7.5 Eosinophils % 0.2 Basophils % 0.2 Absolute Neutrophils 8.5 H Absolute Lymphocytes 1.2 Absolute Monocytes 0.8 Absolute Eosinophils 0.0 Absolute Basophils 0.0 10/07/18 11:48 Clean Catch Midstream Urine Culture - Final Enterococcus Faecalis(Group D) 10/07/18 10/07/18 11:48 14:55 Troponin I Cancelled < 0.012 NT-Pro-B Natriuret Pep Cancelled 162 Impressions: Chest X-Ray 10/07/18 11:06 IMPRESSION: NO ACUTE RADIOGRAPHIC FINDING IN THE CHEST. Abdomen/Pelvis CT 10/07/18 14:27 IMPRESSION: Appendicitis. No abscess. Mild fatty infiltration of the liver. Nonobstructing left renal calculi. Mild diverticulosis coli. Assessment & Plan - Plan Summary Plan Summary: I have personally interviewed and examined this patient. I agree with the above documentation by Rebeca Oglesby PA-C. Patient status post open appendectomy. Ambulate, pulmonary toilet, advance to full liquids.
[2018-10-09] MEDS: ENOXAPARIN SODIUM INJ 40 MG/0.4 ML DISP.SYRIN SUBCUT SCH (12:15)
[2018-10-09] MEDS: FLUTICASONE NASAL SPRAY 50 MCG/SPRY 120 SPRAY/16 GM NASL SCH (21:05)
[2018-10-09] MEDS: HYDROMORPHONE HCL INJ/PF 2 MG/ML AMPULE IV PRN (21:06)
[2018-10-10] MEDS: INSULIN REG, HUMAN 100 UNIT/ML 3 ML VIAL (PYX) SUBCUT SCH ×4 (00:18→17:48)
[2018-10-10] MEDS: KETOROLAC TROMETHAMINE INJ/PF 30 MG/1 ML SDV IV SCH ×4 (00:20→17:54)
[2018-10-10] MEDS: PIPERACILLIN SODIUM/TAZOBACTAM 3.375 GM in NORMAL SALINE 100 ML IV SCH ×4 (00:21→17:54)
[2018-10-10] MEDS: NORMAL SALINE 1000 ML 1,000 ML IV PRN (05:23)
[2018-10-10] MEDS: HYDROMORPHONE HCL INJ/PF 2 MG/ML AMPULE IV PRN (08:29)
--- NOTE | 2018-10-10 11:11 | PDOC PROGRESS REPORT ---
Subjective Progress Note for:: 10/10/18 Subjective:: Less incisional pains Tolerating fluids Reason For Visit: APPENDICITIS Physical Exam Vital Signs: Temp Pulse Resp BP Pulse Ox 97.5 F 67 28 H 142/82 H 92 10/10/18 03:58 10/10/18 03:58 10/10/18 03:58 10/10/18 03:58 10/10/18 03:58 Intake & Output 10/09/18 10/10/18 10/11/18 06:59 06:59 06:59 Intake Total 3351 2637 Output Total 790 520 Balance 2561 2117 Weight 109.6 kg 114.1 kg Exam: abdomen is soft and non tender. Incision looks good Incision closed by tying sutures that were left untied in the OR. Results Laboratory Results: 10/09/18 04:16 10/08/18 04:13 10/07/18 11:48 Clean Catch Midstream Urine Culture - Final Enterococcus Faecalis(Group D) 10/07/18 10/07/18 11:48 14:55 Troponin I Cancelled < 0.012 NT-Pro-B Natriuret Pep Cancelled 162 Impressions: Chest X-Ray 10/07/18 11:06 IMPRESSION: NO ACUTE RADIOGRAPHIC FINDING IN THE CHEST. Abdomen/Pelvis CT 10/07/18 14:27 IMPRESSION: Appendicitis. No abscess. Mild fatty infiltration of the liver. Nonobstructing left renal calculi. Mild diverticulosis coli. Assessment & Plan - Diagnosis (1) Hypertension Qualifiers: Hypertension type: essential hypertension Qualified Code(s): I10 - Essential (primary) hypertension Is this a current diagnosis for this admission?: Yes (2) Type 2 diabetes mellitus Qualifiers: Diabetes mellitus fci insulin use: unspecified fci insulin use status Diabetes mellitus complication status: without complication Qualified Code(s): E11.9 - Type 2 diabetes mellitus without complications Is this a current diagnosis for this admission?: Yes - Time Time Spent with patient: 15-24 minutes - Inpatient Certification Medical Necessity: Need for IV Antibiotics - Plan Summary Plan Summary: Delayed primary closure of incision done Increase diet to regular Continue antibotics another 24 hrs Discharge in 24 hrs
[2018-10-10] MEDS: FLUTICASONE NASAL SPRAY 50 MCG/SPRY 120 SPRAY/16 GM NASL SCH ×2 (11:44→21:47)
[2018-10-10] MEDS: ENOXAPARIN SODIUM INJ 40 MG/0.4 ML DISP.SYRIN SUBCUT SCH (11:45)
[2018-10-10] MEDS ORDERED: CHLORPROMAZINE HCL INJ 25 MG/1 ML AMPULE IV PRN (14:30)
[2018-10-10] MEDS ORDERED: HALOPERIDOL 5 MG TABLET PO PRN (16:41)
[2018-10-11] MEDS: KETOROLAC TROMETHAMINE INJ/PF 30 MG/1 ML SDV IV SCH ×4 (00:07→18:30)
[2018-10-11] MEDS: INSULIN REG, HUMAN 100 UNIT/ML 3 ML VIAL (PYX) SUBCUT SCH ×5 (00:07→21:46)
[2018-10-11] MEDS: PIPERACILLIN SODIUM/TAZOBACTAM 3.375 GM in NORMAL SALINE 100 ML IV SCH ×4 (00:07→18:29)
[2018-10-11] MEDS ORDERED: HYDRALAZINE HCL INJ/PF 20 MG/1 ML SDV IV PRN (04:55)
--- NOTE | 2018-10-11 05:06 | PDOC PROGRESS REPORT ---
Subjective Progress Note for:: 10/11/18 Subjective:: Patient is resting comfortably in bed. No complaints today. Nursing staff has no concerns. pulled me aside and expressed concern about sundowning. She states the patient becomes confused and agitated at night. It has been getting progressively worse over the last few weeks. She states they mentioned it to his PCP at the [facility] but nothing has been done to address the issue. The patient's states she is not concerned for her safety but, when at home, she locks her bedroom door every night to keep him away because he is so agitated/confused. She was visibly upset, expressing her despair about their current situation after 50+ years of marriage. She also states he has been more and more 'forgetful' in the last few months and she is concerned about dementia. Started the patient on PRN Haldol for nightly use. Offered to send the patient home with a prescription for the same medication. Urged the to discuss these issues again with her PCP. Reason For Visit: APPENDICITIS Physical Exam Vital Signs: Temp Pulse Resp BP Pulse Ox 98.7 F 65 16 159/64 H 93 10/11/18 01:26 10/11/18 02:00 10/11/18 01:26 10/11/18 01:26 10/11/18 01:26 Intake & Output 10/09/18 10/10/18 10/11/18 06:59 06:59 06:59 Intake Total 3351 2637 1486 Output Total 790 520 125 Balance 2561 2117 1361 Weight 109.6 kg 114.1 kg Results Laboratory Results: 10/09/18 04:16 10/08/18 04:13 10/07/18 10/07/18 11:48 14:55 Troponin I Cancelled < 0.012 NT-Pro-B Natriuret Pep Cancelled 162 Impressions: Chest X-Ray 10/07/18 11:06 IMPRESSION: NO ACUTE RADIOGRAPHIC FINDING IN THE CHEST. Abdomen/Pelvis CT 10/07/18 14:27 IMPRESSION: Appendicitis. No abscess. Mild fatty infiltration of the liver. Nonobstructing left renal calculi. Mild diverticulosis coli. Assessment and Plan - Diagnosis (1) Acute delirium Is this a current diagnosis for this admission?: Yes Plan: Resolved Secondary to acute appendicitis and general anesthesia. Patient is back at baseline reports the patient is often confused and delirious at night. States it has been getting worse recently, so much so that she locks her bedroom door at night to keep him away. Ordered PRN haldol while inpatient. Offered the patient a prescription for the same medication. Recommended the patient see his PCP. (2) Acute appendicitis Qualifiers: Acute appendicitis type: unspecified acute appendicitis type Qualified Code(s): K35.80 - Unspecified acute appendicitis Is this a current diagnosis for this admission?: Yes Plan: Management per surgery. Review of surgical report reveals that appendix was markedly inflamed and fragmented. Pathology report is still pending. Patient is on Zosyn therapy. (3) Hypertension Qualifiers: Hypertension type: essential hypertension Qualified Code(s): I10 - Essential (primary) hypertension Is this a current diagnosis for this admission?: Yes Plan: PMH HTN Resumed home dose amlodipine and captopril HCTZ still on hold (4) Type 2 diabetes mellitus Qualifiers: Diabetes mellitus long term care phlebotomist insulin use: unspecified long term care phlebotomist insulin use status Diabetes mellitus complication status: without complication Qualified Code(s): E11.9 - Type 2 diabetes mellitus without complications Is this a current diagnosis for this admission?: Yes Plan: Controlled Continue Accu-Cheks ACHS Humalog sliding scale coverage. - Time Time Spent with patient: 15-24 minutes Medications reviewed and adjusted accordingly: Yes Anticipated discharge: Home - Inpatient Certification Based on my medical assessment, after consideration of the patient's comorbidities, presenting symptoms, or acuity I expect that the services needed warrant INPATIENT care.: Yes I certify that my determination is in accordance with my understanding of Medicare's requirements for reasonable and necessary INPATIENT services [42 CFR 412.3e].: Yes Medical Necessity: Risk of Complication if Not Cared For in Hospital
[2018-10-11 06:06] LABS: ABSOLUTE EOSINOPHILS # (AUTO) 0.1 10^3/uL (0.0-0.6); ABSOLUTE LYMPHOCYTES (AUTO) 1.3 10^3/uL (0.5-4.7); ABSOLUTE MONOCYTES (AUTO) 0.8 10^3/uL (0.1-1.4); ABSOLUTE NEUT (AUTO) 8.1 10^3/uL (1.7-8.2); BASOPHILS % (AUTO) 0.1 % (0-2); EOSINOPHILS % (AUTO) 0.9 % (0-6); HEMATOCRIT 34.2 % (37.9-51.0); HEMOGLOBIN 11.9 g/dL (13.5-17.0); LYMPHOCYTES % (AUTO) 12.6 % (13-45); MEAN CORPUSCULAR HEMOGLOBIN 30.6 pg (27.0-33.4); MEAN CORPUSCULAR HGB CONC 34.7 g/dL (32.0-36.0); MEAN CORPUSCULAR VOLUME 88 fl (80-97); MONOCYTES % (AUTO) 8.1 % (3-13); PLATELET COUNT 148 10^3/uL (150-450); RED BLOOD COUNT 3.88 10^6/uL (4.35-5.55); SEGMENTED NEUTROPHILS % (AUTO) 78.3 % (42-78); TOTAL CELLS COUNTED % (AUTO) 100 %; WHITE BLOOD COUNT 10.4 10^3/uL (4.0-10.5)
[2018-10-11 07:03] LABS: ANION GAP 9 (5-19); BLOOD UREA NITROGEN 24 mg/dL (7-20); CALCIUM 8.2 mg/dL (8.4-10.2); CARBON DIOXIDE 26 mmol/L (22-30); CHLORIDE 105 mmol/L (98-107); GLUCOSE 170 mg/dL (75-110); POTASSIUM 3.7 mmol/L (3.6-5.0); SODIUM 139.9 mmol/L (137-145)
[2018-10-11] MEDS: AMLODIPINE BESYLATE 5 MG TABLET PO SCH (09:36)
[2018-10-11] MEDS: FLUTICASONE NASAL SPRAY 50 MCG/SPRY 120 SPRAY/16 GM NASL SCH ×2 (09:37→22:32)
[2018-10-11] MEDS ORDERED: CAPTOPRIL 50 MG PO SCH (10:00)
[2018-10-11] MEDS: ENOXAPARIN SODIUM INJ 40 MG/0.4 ML DISP.SYRIN SUBCUT SCH (12:25)
--- NOTE | 2018-10-11 13:59 | RADIOLOGY REPORT (SQ) ---
EXAM DESCRIPTION: KUB/ABDOMEN (SINGLE VIEW) COMPLETED DATE/TIME: 10/11/2018 1:52 pm REASON FOR STUDY: abdominal discomfort. acute nausea COMPARISON: None. NUMBER OF VIEWS: One view. TECHNIQUE: Supine radiographic image of the abdomen acquired. LIMITATIONS: None. FINDINGS: BOWEL GAS PATTERN: Normal bowel gas pattern. No dilated loops. CALCIFICATIONS: No suspicious calcifications. SOFT TISSUES: No gross mass or suggestion of organomegaly. HARDWARE: None in the abdomen. BONES: No acute fracture. No worrisome bone lesions. OTHER: No other significant finding. IMPRESSION: NO RADIOGRAPHIC EVIDENCE FOR ACUTE ABDOMINAL DISEASE. TECHNICAL DOCUMENTATION: JOB ID: [id number] [employer]- All Rights Reserved Reading location - IP/workstation name: [email or web address]
[2018-10-11] MEDS: HYDROMORPHONE HCL INJ/PF 2 MG/ML AMPULE IV PRN ×2 (16:48→22:30)
--- NOTE | 2018-10-11 17:26 | PDOC PROGRESS REPORT ---
Addendum entered and electronically signed by LY DIAZ NP 10/11/18 17:28: Provider Note Provider Note: THIS PROVIDER WAS NOTIFIED BY BEDSIDE RN THAT THE PATIENT HAD A BOWEL MOVEMENT THIS AFTERNOON AFTER OUR DISCUSSION. STILL PLAN TO INITIATE BID SENNA, PRN MILK OF MAGNESIA. Original Note: Subjective Progress Note for:: 10/11/18 Subjective:: Patient is resting comfortably in bed. Complains of mild abdominal discomfort, denies pain. Patient states, "I have no appetite." Endorses mild nausea. States it has been approximately 1 week since he has had a bowel movement. He is only passed gas once since his surgery. The patient denies belching. and daughter talk to me privately outside of the room. They are concerned about the patient's delirium and agitation. They have their hesitations about the patient taking Haldol for his symptoms of sundowning. The daughter is requesting benzodiazepines. When I explained to her that benzodiazepines are contraindicated for the treatment of sundowning, she again stated that she had reservations about her "elderly father taking an antipsychotic." We discussed having a personal service representative from psych evaluate the patient and make medication recommendations. Family was very pleased with this option. Consulted psych today, discussed patient's case with psych team. Notified surgery, primary team, about this family meeting. Awaiting psych eval and medication recommendations. Reason For Visit: APPENDICITIS Physical Exam Vital Signs: Temp Pulse Resp BP Pulse Ox 98.4 F 63 17 125/48 L 94 10/11/18 15:50 10/11/18 15:50 10/11/18 15:50 10/11/18 15:50 10/11/18 15:50 Intake & Output 10/10/18 10/11/18 10/12/18 06:59 06:59 06:59 Intake Total 2637 1786 947 Output Total 520 125 1 Balance 2117 1661 946 Weight 114.1 kg 112 kg General appearance: PRESENT: obese, well-developed, well-nourished Eye exam: PRESENT: conjunctiva pink, PERRLA Mouth exam: PRESENT: moist, tongue midline Neck exam: PRESENT: full ROM Respiratory exam: PRESENT: clear to auscultation roger, symmetrical, unlabored Cardiovascular exam: PRESENT: RRR Pulses: PRESENT: normal radial pulses, normal dorsalis pedis pul Vascular exam: PRESENT: normal capillary refill GI/Abdominal exam: PRESENT: normal bowel sounds, soft, tenderness - Mild tend erness around surgical site. ABSENT: distended Rectal exam: PRESENT: deferred Extremities exam: PRESENT: full ROM. ABSENT: pedal edema Musculoskeletal exam: PRESENT: ambulatory, full ROM Neurological exam: PRESENT: alert, awake, oriented to person, oriented to place, oriented to time, oriented to situation Psychiatric exam: PRESENT: appropriate affect Skin exam: PRESENT: dry, intact, normal color, other - Surgical incision to the RLQ sutured closed Results Laboratory Results: 10/11/18 04:44 10/11/18 04:44 10/11/18 10/11/18 04:44 04:44 WBC 10.4 RBC 3.88 L Hgb 11.9 L Hct 34.2 L MCV 88 MCH 30.6 MCHC 34.7 RDW 14.0 Plt Count 148 L Seg Neutrophils % 78.3 H Lymphocytes % 12.6 L Monocytes % 8.1 Eosinophils % 0.9 Basophils % 0.1 Absolute Neutrophils 8.1 Absolute Lymphocytes 1.3 Absolute Monocytes 0.8 Absolute Eosinophils 0.1 Absolute Basophils 0.0 Sodium 139.9 Potassium 3.7 Chloride 105 Carbon Dioxide 26 Anion Gap 9 BUN 24 H Creatinine 0.81 Est GFR ( Amer) > 60 Est GFR (Non-Af Amer) > 60 Glucose 170 H Calcium 8.2 L 10/07/18 10/07/18 11:48 14:55 Troponin I Cancelled < 0.012 NT-Pro-B Natriuret Pep Cancelled 162 Impressions: Chest X-Ray 10/07/18 11:06 IMPRESSION: NO ACUTE RADIOGRAPHIC FINDING IN THE CHEST. Abdomen/Pelvis CT 10/07/18 14:27 IMPRESSION: Appendicitis. No abscess. Mild fatty infiltration of the liver. Nonobstructing left renal calculi. Mild diverticulosis coli. KUB X-Ray 10/11/18 00:00 IMPRESSION: NO RADIOGRAPHIC EVIDENCE FOR ACUTE ABDOMINAL DISEASE. Status: Imported from PACS Assessment and Plan - Diagnosis (1) Acute delirium Is this a current diagnosis for this admission?: Yes Plan: Resolved Secondary to acute appendicitis and general anesthesia. Patient is back at baseline reports the patient is often confused and delirious at night. She describes symptoms of sundowning. Ordered PRN haldol while inpatient. Plan for psych evaluation, appreciate medication recommendations (2) Acute appendicitis Qualifiers: Acute appendicitis type: unspecified acute appendicitis type Qualified Code(s): K35.80 - Unspecified acute appendicitis Is this a current diagnosis for this admission?: Yes Plan: Management per surgery. Review of surgical report reveals that appendix was markedly inflamed and fragmented. Pathology report is still pending. Patient is on Zosyn therapy. (3) Hypertension Qualifiers: Hypertension type: essential hypertension Qualified Code(s): I10 - Essential (primary) hypertension Is this a current diagnosis for this admission?: Yes Plan: PMH HTN Resumed home dose amlodipine and captopril HCTZ still on hold (4) Type 2 diabetes mellitus Qualifiers: Diabetes mellitus laborer marine terminal insulin use: unspecified laborer marine terminal insulin use status Diabetes mellitus complication status: without complication Qualified Code(s): E11.9 - Type 2 diabetes mellitus without complications Is this a current diagnosis for this admission?: Yes Plan: Controlled Continue Accu-Cheks ACHS Humalog sliding scale coverage. - Time Time Spent with patient: 15-24 minutes Medications reviewed and adjusted accordingly: Yes Anticipated discharge: Home - Inpatient Certification Based on my medical assessment, after consideration of the patient's comorbidities, presenting symptoms, or acuity I expect that the services needed warrant INPATIENT care.: Yes I certify that my determination is in accordance with my understanding of Medicare's requirements for reasonable and necessary INPATIENT services [42 CFR 412.3e].: Yes Medical Necessity: Need Close Monitoring Due to Risk of Patient Decompensation, Risk of Complication if Not Cared For in Hospital
[2018-10-11] MEDS ORDERED: MAGNESIUM HYDROXIDE SUSP 30 ML UDCUP PO PRN (17:28)
[2018-10-11] MEDS: SENNOSIDES/DOCUSATE 8.6-50 MG 1 EACH TABLET PO SCH (18:23)
--- NOTE | 2018-10-11 19:17 | PDOC PROGRESS REPORT ---
Subjective Progress Note for:: 10/11/18 Subjective:: Poor appetite. Has Flatus Reason For Visit: APPENDICITIS Physical Exam Vital Signs: Temp Pulse Resp BP Pulse Ox 98.4 F 63 17 125/48 L 94 10/11/18 15:50 10/11/18 15:50 10/11/18 15:50 10/11/18 15:50 10/11/18 15:50 Intake & Output 10/10/18 10/11/18 10/12/18 06:59 06:59 06:59 Intake Total 2637 1786 1047 Output Total 520 125 1 Balance 2117 1661 1046 Weight 114.1 kg 112 kg Exam: abdomen is soft and non tender. Incision is closed with minimal drainage at the lower part. Results Laboratory Results: 10/11/18 04:44 10/11/18 04:44 10/11/18 10/11/18 04:44 04:44 WBC 10.4 RBC 3.88 L Hgb 11.9 L Hct 34.2 L MCV 88 MCH 30.6 MCHC 34.7 RDW 14.0 Plt Count 148 L Seg Neutrophils % 78.3 H Lymphocytes % 12.6 L Monocytes % 8.1 Eosinophils % 0.9 Basophils % 0.1 Absolute Neutrophils 8.1 Absolute Lymphocytes 1.3 Absolute Monocytes 0.8 Absolute Eosinophils 0.1 Absolute Basophils 0.0 Sodium 139.9 Potassium 3.7 Chloride 105 Carbon Dioxide 26 Anion Gap 9 BUN 24 H Creatinine 0.81 Est GFR ( Amer) > 60 Est GFR (Non-Af Amer) > 60 Glucose 170 H Calcium 8.2 L 10/07/18 10/07/18 11:48 14:55 Troponin I Cancelled < 0.012 NT-Pro-B Natriuret Pep Cancelled 162 Impressions: Chest X-Ray 10/07/18 11:06 IMPRESSION: NO ACUTE RADIOGRAPHIC FINDING IN THE CHEST. Abdomen/Pelvis CT 10/07/18 14:27 IMPRESSION: Appendicitis. No abscess. Mild fatty infiltration of the liver. Nonobstructing left renal calculi. Mild diverticulosis coli. KUB X-Ray 10/11/18 00:00 IMPRESSION: NO RADIOGRAPHIC EVIDENCE FOR ACUTE ABDOMINAL DISEASE. Assessment & Plan - Diagnosis (1) Hypertension Qualifiers: Hypertension type: essential hypertension Qualified Code(s): I10 - Essential (primary) hypertension Is this a current diagnosis for this admission?: Yes (2) Type 2 diabetes mellitus Qualifiers: Diabetes mellitus manager terminal insulin use: unspecified fci insulin use status Diabetes mellitus complication status: without complication Qualified Code(s): E11.9 - Type 2 diabetes mellitus without complications Is this a current diagnosis for this admission?: Yes - Time Time Spent with patient: 15-24 minutes - Inpatient Certification Medical Necessity: Need Close Monitoring Due to Risk of Patient Decompensation, Need for IV Antibiotics - Plan Summary Plan Summary: is concerned about patient's starting dementia usually worse at night () Hospitalist consult appreciated. She will consult a psychiatrist for patient's . Patient had an episode post op that he needed to be taken cared off in ICU. Will also try to improve patient's po intake. Check WBC and possibly stop antibiotics when normalized
[2018-10-12] MEDS: KETOROLAC TROMETHAMINE INJ/PF 30 MG/1 ML SDV IV SCH ×3 (00:03→12:03)
[2018-10-12] MEDS: PIPERACILLIN SODIUM/TAZOBACTAM 3.375 GM in NORMAL SALINE 100 ML IV SCH ×3 (00:03→12:00)
[2018-10-12 04:22] LABS: ABSOLUTE EOSINOPHILS # (AUTO) 0.2 10^3/uL (0.0-0.6); ABSOLUTE LYMPHOCYTES (AUTO) 1.4 10^3/uL (0.5-4.7); ABSOLUTE MONOCYTES (AUTO) 1.2 10^3/uL (0.1-1.4); BASOPHILS % (AUTO) 0.4 % (0-2); EOSINOPHILS % (AUTO) 1.8 % (0-6); HEMATOCRIT 32.7 % (37.9-51.0); HEMOGLOBIN 11.2 g/dL (13.5-17.0); LYMPHOCYTES % (AUTO) 14.3 % (13-45); MEAN CORPUSCULAR HEMOGLOBIN 30.2 pg (27.0-33.4); MEAN CORPUSCULAR HGB CONC 34.4 g/dL (32.0-36.0); MEAN CORPUSCULAR VOLUME 88 fl (80-97); MONOCYTES % (AUTO) 11.9 % (3-13); PLATELET COUNT 155 10^3/uL (150-450); RED BLOOD COUNT 3.73 10^6/uL (4.35-5.55); RED CELL DISTRIBUTION WIDTH 13.8 % (11.5-14.0); SEGMENTED NEUTROPHILS % (AUTO) 71.6 % (42-78); TOTAL CELLS COUNTED % (AUTO) 100 %; WHITE BLOOD COUNT 9.8 10^3/uL (4.0-10.5)
[2018-10-12] MEDS: INSULIN REG, HUMAN 100 UNIT/ML 3 ML VIAL (PYX) SUBCUT SCH ×2 (07:51→12:01)
[2018-10-12] MEDS: AMLODIPINE BESYLATE 5 MG TABLET PO SCH (09:21)
[2018-10-12] MEDS: FLUTICASONE NASAL SPRAY 50 MCG/SPRY 120 SPRAY/16 GM NASL SCH (09:22)
[2018-10-12] MEDS: SENNOSIDES/DOCUSATE 8.6-50 MG 1 EACH TABLET PO SCH (09:22)
[2018-10-12] MEDS: ENOXAPARIN SODIUM INJ 40 MG/0.4 ML DISP.SYRIN SUBCUT SCH (12:04)
--- NOTE | 2018-10-12 12:08 | PSYCHOLOGICAL NOTE ---
Psych Note - Psych Note Date seen by psych provider: 10/12/18 Time seen by psych provider: 08:35 Psych Note: Reason for Consult: medication recommendations ERIC LOUIS is a 72 year old male diabetic, hypertensive c/o RLQ pains 2 nights ago worse yesterday associated with nausea/vomiting. Had CT today showed acute appendicitis. Patient reports that he is feeling "lousy" because he cannot eat anything. Clinician noted patient's food tray next to him. When asked why he was not be able to eat anything he reports that he just looks at it and "does not want it...it is not appealing." When asked about any mental health diagnosis he denies knowledge of having a PTSD diagnosis however states that he is treated by the ID and feels that he may have PTSD; "I do not know for sure if I have it I have not been told but I probably do." Patient is correctly able to identify orientation questions and quickly able to demonstrate sequencing however switching executive functioning is poor. Patient refuses to answer questions in regards to how to spell things backwards, count backwards or provide the months of the year backwards. When asked safety and problem solving questions he was quickly able to identify calling 911 if seeing smoke coming out of the neighbors home or turning off the water if there water is flooding in the bathroom. When asked abstract rational level thinking he was only able to correctly identify 1 of the 3 questions. When asked further problem solving questions he was identifies that his cooks for him however she had to go on vacation that he would "spend considerable time at [employer]." Patient is alert and orientated to person, place, time and circumstance. Mood mood is overall euthymic with congruent affect however patient reports some dysphoric mood because he has been unable to eat stating food just is not appea ling. Patient denies suicidal and homicidal ideation. Delusions are absent behaviors congruent with an intact reality based presentation i.e. organized linear thought process. Eye contact is well-maintained. Conversational speech is within normal rate, tone and prosody. Intellectual abilities appear to be within the average range. Attention and concentration are good. Insight, judgment, impulse control are currently fair. Medication recommendations per [facility]'s contracted psychiatrist Dr Dale GRIDER are as follows Depakote 250mg twice daily Buspar 5mg twice daily Rispirdone 0.25mg every 4pm as needed please discontinue thorazine and haldol PTSD per history provided by family Possible neurocognitive disorder; please consult with neurology Impression/Plan: Patient is orientated to person, place, time and circumstance; however, when attempting to evaluate high cognitive processes, ie abstract, executive functions and rational level thinking, the patient reports he is unable to answer and refuses to attempt to answer. He continued to be able to problem solve and answered safety issues correctly. The family reports concern for sundowner type behaviours in the evening and increase in memory issues. They requested from attending hospitalist for assistance in medications. Medication recommendations have been provided. Patient is recommended to follow up with neurology. Attending physicians are asked to consider to avoid prescribing benzodiazepines (e.g. Ativan, Xanax, Valium, Klonopin), antipsychotics (e.g. Haldol, Geodon, Zyprexa, Seroquel), some sleep aids (e.g. Ambien, Lunesta, Sonata), narcotic pain medications, and high-doses of steroids (prednisone) as they have been known to cause and/or increased symptoms of aggression, psychosis, or paranoia in patients with neurodegenerative processes such as dementia, Alzheimer's disease, traumatic brain injury, etc. Dr. Ledesma was consulted on the care and management of this patient; attending physician is in agreement with recommendations and disposition.
[2018-10-12] MEDS ORDERED: RISPERIDONE 0.25 MG TABLET PO PRN (12:28)
--- NOTE | 2018-10-12 12:44 | DISCHARGE SUMMARY E ---
Discharge Summary NAME: ERIC LOUIS : 1945 AGE: 72Y ADMITTED: 10/07/2018 DISCHARGED: FINAL DIAGNOSES: 1. Acute appendicitis. 2. Diabetes mellitus. 3. Starting dementia. PROCEDURE DONE: Open appendectomy after failed attempted laparoscopic procedure, date 10/07/2018, surgeon Dr. Dewitt. HOSPITAL COURSE: This 72-year-old male, known diabetic, complained of abdominal pains for about 2 days. He had a CT scan of the abdomen, which showed acute appendicitis. He was immediately taken to the OR on admission on 10/07/2018 and an attempted laparoscopic procedure was performed. Unfortunately the appendix appeared to be friable and visibility was not good with some bleeding. The procedure was then converted to an open McBurney's incision and appendectomy was then carried out. A drain was placed and the wound was left untied sutures on the incision to have delayed primary closure in about 3 days. The patient did quite well and noted to have elevation in white count and subsequently subsided. The wound was closed at bedside with tying of the sutures placed in the OR. The wound drained a little serous discharge until the day of discharge. He was continued on IV antibiotics until 10/12/2018 on discharge. The patient had a bowel movement on 10/11/2018. 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 The patient is supposed to be seen on the day of discharge by psychiatrist. The patient will be discharged after seen. Patient to be followed up in the surgical clinic in about 2 weeks. He is to continue all his home medications. As far as pain is concerned, he can just take Tylenol p.r.n. for pain. DICTATING PHYSICIAN: ADI DEWITT M.D. [id number] PHY#: [id number] ID: [id number] JOB#: [id number] ACCT: [id number] cc:ADI DEWITT M.D. >
[2018-10-12] MEDS ORDERED: DIVALPROEX SODIUM 250 MG TABLET.DR PO SCH (13:00)
[2018-10-12] MEDS ORDERED: BUSPIRONE HCL 10 MG TABLET PO SCH (13:00)
[2018-10-12 13:57] VITALS: BP 159/64
== END 2018-10-12 15:05 | disposition home health service (06) | DRG 343 ==
LOC: ER 10:17 → EH 19:11 → ICU 10-08 00:22 → 3N 10-08 18:24
PROVIDERS: ADMIT Surgery; ATTEND Surgery
PROC: 0DJD4ZZ Inspection of Lower Intestinal Tract, Percutaneous Endoscopic Approach (ICD-10-PCS; 2018-10-07)
PROC: 0DTJ0ZZ Resection of Appendix, Open Approach (ICD-10-PCS; principal; 2018-10-07 20:30)
DX: K35.80 Unspecified acute appendicitis (principal); E11.8 Type 2 diabetes mellitus with unspecified complications; I10 Essential (primary) hypertension; I45.6 Pre-excitation syndrome; R41.0 Disorientation, unspecified; T88.59XA Other complications of anesthesia, initial encounter; Y83.6 Removal of other organ (partial) (total) as the cause of abnormal reaction of the patient, or of later complication, without mention of misadventure at the time of the procedure; Y70.3 Surgical instruments, materials and anesthesiology devices (including sutures) associated with adverse incidents; Y92.230 Patient room in hospital as the place of occurrence of the external cause; Z87.891 Personal history of nicotine dependence
CPT/HCPCS: 36415; 71046; 74018; 74177; 80048; 80053; 81001; 82962; 83690; 83880; 840; 84484; 85025; 87086; 87088; 87186; 88304; 93005; 93010; 94799; 96361; 96374; 96375; 99285; A6266; J0131; J0360; J1100; J1170; J1200; J1650; J1815; J1885; J2001; J2250; J2405; J2543; J2704; J2765; J2930; J3230; J3490; J7030; J7120; S0028

== ENCOUNTER 2018-10-15 11:58 | Observation (INO) | payer OTHER, MEDICARE ==
--- NOTE | 2018-10-15 14:04 | ER Document Report ---
ED Medical Screen (RME) - General Chief Complaint: Leg Swelling Stated Complaint: POST OP COMPLICATIONS Time Seen by Provider: 10/15/18 13:51 Primary Care Provider: LUCA GARCIA [Primary Care Provider] - Follow up as needed Notes: Patient is a 72-year-old male that presents to the emergency department for chief complaint of leg swelling and postop wound issue. Patient recently had emergent open appendectomy, his home health aide noticed that his wound was opening up, and that his legs were swollen yesterday and advised to come to the ED. ROS: Other than noted above, the 12 point review of systems was reviewed with the patient and were negative, all pertinent findings are included in the HPI. PHYSICAL EXAMINATION: Vital signs reviewed. GENERAL: Well-appearing, well-nourished and in no acute distress. HEAD: Atraumatic, normocephalic. EYES: Pupils equal round extraocular movements intact, conjunctiva are normal. ENT: Nares patent NECK: Normal range of motion CV: Heart regular rate and rhythm LUNGS: No respiratory distress Abdomen: Wound dehiscence noted of his abdominal wound Musculoskeletal: Normal range of motion, bilateral lower extremity edema NEUROLOGICAL: Normal speech PSYCH: Normal mood, normal affect. MDM: Patient seen and examined for rapid initial assessment. Vital signs reviewed. A comprehensive ED assessment and evaluation of the patient, analysis of test results and completion of the medical decision making process will be conducted by additional ED providers. *Note is created using voice recognition software and may contain spelling, syntax or grammatical errors. TRAVEL OUTSIDE OF THE [place] IN LAST 30 DAYS: No - Related Data Allergies/Adverse Reactions: aspirin Allergy (Verified 10/15/18 12:07) Iodinated Contrast- Oral and IV Dye Allergy (Verified 10/15/18 12:07) Past Medical History - Past Medical History Cardiac Medical History: Reports: Hx Hypertension Denies: Hx Coronary Artery Disease Pulmonary Medical History: Denies: Hx Asthma, Hx COPD Neurological Medical History: Denies: Hx Seizures Endocrine Medical History: Reports: Hx Diabetes Mellitus Type 2. Denies: Hx Diabetes Mellitus Type 1, Hx Hyperthyroidism, Hx Hypothyroidism Renal/ Medical History: Denies: Hx Peritoneal Dialysis GI Medical History: Denies: Hx Cirrhosis, Hx Hepatitis Infectious Medical History: Denies: Hx Hepatitis Past Surgical History: Reports: Hx Appendectomy - Performed just prior to my evaluation, Hx Cholecystectomy Physical Exam - Vital signs Vitals: Temp Pulse Resp BP Pulse Ox 98.3 F 77 18 161/64 H 97 10/15/18 12:09 10/15/18 12:09 10/15/18 12:09 10/15/18 12:09 10/15/18 12:09 Course - Vital Signs Vital signs: Temp Pulse Resp BP Pulse Ox 98.3 F 77 18 161/64 H 97 10/15/18 12:09 10/15/18 12:09 10/15/18 12:09 10/15/18 12:09 10/15/18 12:09 Doctor's Discharge - Discharge [facility]errals: [facility] [[facility] - Follow up as needed
--- NOTE | 2018-10-15 14:34 | RADIOLOGY REPORT (SQ) ---
EXAM DESCRIPTION: CHEST SINGLE VIEW COMPLETED DATE/TIME: 10/15/2018 2:28 pm REASON FOR STUDY: shortness of breath COMPARISON: 10/07/2018 EXAM PARAMETERS: NUMBER OF VIEWS: One view. TECHNIQUE: Single frontal radiographic view of the chest acquired. RADIATION DOSE: NA LIMITATIONS: None. FINDINGS: LUNGS AND PLEURA: There is a small right pleural effusion new from prior study. Lung fiel ds are otherwise clear. No pneumothorax. MEDIASTINUM AND HILAR STRUCTURES: No masses. Contour normal. HEART AND VASCULAR STRUCTURES: Heart normal in size. Normal vasculature. BONES: No acute findings. HARDWARE: None in the chest. OTHER: No other significant finding. IMPRESSION: Small right pleural effusion. No other significant findings. TECHNICAL DOCUMENTATION: JOB ID: [id number] [employer]- All Rights Reserved Reading location - IP/workstation name: [email or web address]
[2018-10-15 14:45] LABS: HEMATOCRIT 26.9 % (37.9-51.0); HEMOGLOBIN 9.1 g/dL (13.5-17.0); MEAN CORPUSCULAR HGB CONC 33.9 g/dL (32.0-36.0); MEAN CORPUSCULAR VOLUME 89 fl (80-97); PLATELET COUNT 272 10^3/uL (150-450); RED BLOOD COUNT 3.03 10^6/uL (4.35-5.55); RED CELL DISTRIBUTION WIDTH 14.3 % (11.5-14.0); WHITE BLOOD COUNT 14.4 10^3/uL (4.0-10.5)
[2018-10-15 14:52] LABS: ALANINE AMINOTRANSFERASE 24 U/L (21-72); ALBUMIN 3.1 g/dL (3.5-5.0); ALKALINE PHOSPHATASE 60 U/L (38-126); ANION GAP 9 (5-19); ASPARTATE AMINO TRANSFERASE 39 U/L (17-59); BILIRUBIN,DIRECT 0.4 mg/dL (0.0-0.4); BILIRUBIN,TOTAL 0.6 mg/dL (0.2-1.3); BLOOD UREA NITROGEN 14 mg/dL (7-20); CALCIUM 9.1 mg/dL (8.4-10.2); CARBON DIOXIDE 26 mmol/L (22-30); CHLORIDE 101 mmol/L (98-107); GLUCOSE 100 mg/dL (75-110); POTASSIUM 3.8 mmol/L (3.6-5.0); SODIUM 136.4 mmol/L (137-145); TOTAL PROTEIN 6.1 g/dL (6.3-8.2)
[2018-10-15 15:09] LABS: NT PRO BNP 500 pg/mL (5-900)
[2018-10-15 15:11] LABS: TROPONIN I < 0.012 ng/mL
[2018-10-15 15:20] LABS: ABSOLUTE LYMPHOCYTES# (MANUAL) 3.5 10^3/uL (0.5-4.7); ABSOLUTE MONOCYTES # (MANUAL) 0.7 10^3/uL (0.1-1.4); ABSOLUTE NEUTROPHILS# (MANUAL) 10.1 10^3/uL (1.7-8.2); BAND NEUTROPHILS % (MANUAL) 4 % (3-5); BASOPHILS % (MANUAL) 0 % (0-2); EOSINOPHILS % (MANUAL) 1 % (0-6); LYMPHOCYTES % (MANUAL) 24 % (13-45); METAMYELOCYTES % (MANUAL) 1 % (0); MONOCYTES % (MANUAL) 5 % (3-13); SEGMENTED NEUTROPHILS % (MAN) 65 % (42-78); TOTAL CELLS COUNTED 100
[2018-10-15 15:21] LABS: ANISOCYTOSIS SLIGHT; OVALOCYTES 1+; POIKILOCYTOSIS 1+; POLYCHROMASIA 1+; TEAR DROP CELLS SLIGHT; TOXIC GRANULATION 1+
[2018-10-15 15:22] LABS: PLATELET COMMENT ADEQUATE
[2018-10-15 18:46] LABS: APPEARANCE,URINE SLIGHTLY-CLOUDY; BILIRUBIN,URINE NEGATIVE (NEGATIVE); COLOR,URINE YELLOW; GLUCOSE, URINE NEGATIVE (NEGATIVE); KETONES,URINE TRACE mg/dL (NEGATIVE); LEUKOCYTE ESTERASE,URINE NEGATIVE (NEGATIVE); NITRITE,URINE NEGATIVE (NEGATIVE); PROTEIN,URINE NEGATIVE (NEGATIVE); URINE SPECIFIC GRAVITY 1.013; UROBILINOGEN,URINE NEGATIVE mg/dL (<2.0)
[2018-10-15] MEDS ORDERED: DIPHENHYDRAMINE HCL 50 MG/ML VIAL IV ONE (19:01)
[2018-10-15] MEDS ORDERED: METHYLPREDNISOLONE INJ 125 MG/2 ML SDV IV ONE (19:01)
[2018-10-15] MEDS ORDERED: NORMAL SALINE 1000 ML 1,000 ML IV ONE (19:03)
--- NOTE | 2018-10-15 21:52 | EKG REPORT ---
SEVERITY:- BORDERLINE ECG - SINUS RHYTHM BORDERLINE LEFT AXIS DEVIATION BORDERLINE T ABNORMALITIES, INFERIOR LEADS : Confirmed by: Katya Lancaster MD 15-Oct-2018 21:52:26
--- NOTE | 2018-10-15 22:31 | RADIOLOGY REPORT (SQ) ---
US LOWER EXTREMITY VEINS HISTORY: Leg pain and swelling. COMPARISON: None. TECHNIQUE: Hawkins-scale, color Doppler and spectral Doppler images of the bilateral lower extremity veins were obtained. FINDINGS: RIGHT: The right common femoral, superficial femoral and popliteal veins are patent and compressible. Normal augmentation and color Doppler blood flow in the aforementioned veins. The visualized calf veins are also patent. LEFT: The left common femoral, superficial femoral and popliteal veins are patent and compressible. Normal augmentation and color Doppler blood flow in the aforementioned veins. The visualized calf veins are also patent. IMPRESSION: No evidence of deep venous thrombosis in the bilateral lower extremities.
--- NOTE | 2018-10-15 22:44 | ER Document Report ---
ED General - General Chief Complaint: Leg Swelling Stated Complaint: POST OP COMPLICATIONS Time Seen by Provider: 10/15/18 13:51 TRAVEL OUTSIDE OF THE [place] IN LAST 30 DAYS: No - HPI Notes: Patient presents emergency department for evaluation. He was admitted to the hospital and underwent appendectomy by Dr. Dewitt last . He was discharged on Sunday. He is sending here for further evaluation. He has had diminished appetite. He has had a few episodes of emesis. He denies any cough or shortness of breath. states she thinks he has been slightly short of breath with exertion. They are primarily concerned about the swelling in his legs. He admits he is not really have much in the way of physical activity since being discharged. He states his pain is well controlled. He denies any dysuria. - Related Data Allergies/Adverse Reactions: aspirin Allergy (Verified 10/15/18 12:07) Iodinated Contrast- Oral and IV Dye Allergy (Verified 10/15/18 12:07) Past Medical History - General Information source: Patient - Social History Smoking Status: Never Smoker Family History: DM, Hypertension Patient has suicidal ideation: No Patient has homicidal ideation: No - Past Medical History Cardiac Medical History: Reports: Hx Hypertension Denies: Hx Coronary Artery Disease Pulmonary Medical History: Denies: Hx Asthma, Hx COPD Neurological Medical History: Denies: Hx Seizures Endocrine Medical History: Reports: Hx Diabetes Mellitus Type 2. Denies: Hx Diabetes Mellitus Type 1, Hx Hyperthyroidism, Hx Hypothyroidism Renal/ Medical History: Denies: Hx Peritoneal Dialysis GI Medical History: Denies: Hx Cirrhosis, Hx Hepatitis Infectious Medical History: Denies: Hx Hepatitis Past Surgical History: Reports: Hx Appendectomy - 1 week ago, Hx Cholecystectomy Review of Systems - Review of Systems Constitutional: Malaise, Weakness EENT: No symptoms reported Cardiovascular: No symptoms reported Respiratory: No symptoms reported Gastrointestinal: See HPI Genitourinary: No symptoms reported Musculoskeletal: See HPI Skin: No symptoms reported Neurological/Psychological: No symptoms reported Physical Exam - Vital signs Vitals: Temp Pulse Resp BP Pulse Ox 98.3 F 77 18 161/64 H 97 10/15/18 12:09 10/15/18 12:09 10/15/18 12:09 10/15/18 12:09 10/15/18 12:09 - Notes Notes: Vital signs reviewed, please refer to chart. Patient is normocephalic, atraumatic. Pupils equal round, reactive to light. Neck is supple without meningismus. Heart is regular rate and rhythm. Lungs are clear to auscultation bilaterally. Abdomen is soft. Mild global tenderness. He has a small laparoscopic scar just inferior into the left of the umbilicus, that is mildly dehisced. He also has dehiscence on the proximal aspect of the open appendectomy surgical wound. There is no active bleeding. There is no surrounding erythema. Extremities without cyanosis, clubbing. He does have 2- 3+ pitting edema bilateral lower extremities without posterior calf tenderness. Peripheral pulses are equal. Skin is warm and dry. Patient is awake, alert, neurological exam is nonfocal. Course - Re-evaluation Re-evalutation: 10/15/18 22:43 Patient presents to the emergency department for evaluation. Laboratory investigations initially ordered, as well as bilateral venous Dopplers. Dopplers were found to be negative. Laboratory investigations did reveal leukocytosis. Otherwise they were largely unremarkable. Chest x-ray reveals a right pleural effusion. I did speak with Dr. Barreto about the patient. He did come into the ED and evaluate. He was concerned about the possibility of an i ntra-abdominal abscess. He asked that CT scan of the abdomen and pelvis be ordered. This was ordered with IV contrast. The patient had tolerated IV contrast in the past after being premedicated with Solu-Medrol and Benadryl. He did tolerate this again. At this point CT read still pending. Patient has remained stable. We will continue to follow, will update on-call surgeon. 10/15/18 22:44 10/15/18 23:[address] Barreto. He notified me that he would be admitting the patient. - Vital Signs Vital signs: Temp Pulse Resp BP Pulse Ox 98.6 F 74 16 141/61 H 97 10/15/18 18:31 10/15/18 18:31 10/15/18 18:31 10/15/18 18:31 10/15/18 18:31 - Laboratory Result Diagrams: 10/15/18 14:13 10/15/18 14:13 Laboratory results interpreted by me: 10/15/18 10/15/18 10/15/18 14:13 14:13 18:34 WBC 14.4 H RBC 3.03 L Hgb 9.1 L Hct 26.9 L RDW 14.3 H Metamyelocytes % 1 H Abs Neuts (Manual) 10.1 H Sodium 136.4 L Total Protein 6.1 L Albumin 3.1 L Urine Ketones TRACE H - Diagnostic Test Radiology reviewed: Reports reviewed - Small right pleural effusion. Negative Doppler exam bilaterally. CT reveals no acute findings concerning for abscess, pleural effusion noted. - EKG Interpretation by Me Additional EKG results interpreted by me: 10/15/18 22:45 Sinus mechanism with a rate of 73 bpm. Left axis deviation. First-degree AV block. No acute changes concerning for ischemia or infarction, no significant change compared to prior study of October 07, 2018. Discharge - Discharge Clinical Impression: Edema, Leukocytosis Condition: Stable Disposition: ADMITTED INPATIENT Admitting Provider: Surgicalist - [facility] Admitted: Surgical Floor
--- NOTE | 2018-10-15 22:49 | RADIOLOGY REPORT (SQ) ---
CT ABDOMEN PELVIS WITH IV CONTRAST HISTORY: Recent appendectomy. Evaluate for abscess. COMPARISON: 10/07/2018 TECHNIQUE: CT scan of the abdomen and pelvis with IV contrast. This exam was performed according to our departmental dose-optimization program, which includes automated exposure control, adjustment of the mA and/or kV according to patient size and/or use of iterative reconstruction technique. FINDINGS: Trace right pleural effusion with adjacent atelectasis. No pericardial effusion or hiatal hernia. There is mild hepatic steatosis. There has been a prior cholecystectomy. The spleen, pancreas, adrenal glands, and kidneys are normal. There is a nonobstructing stone in the left kidney. No hydronephrosis is seen. The pelvic organs are normal. There are post surgical changes in the lower right anterior abdominal wall from recent appendectomy. No focal fluid collection or abscess is seen. Mild wall thickening of the ascending colon may be reactive. There are scattered colonic diverticula without surrounding inflammatory changes. The aorta is normal caliber and contains atherosclerotic calcifications. There are no acute osseous findings. Mild body wall anasarca is seen. IMPRESSION: Postoperative changes of recent appendectomy. No abscess is seen.
--- NOTE | 2018-10-15 23:33 | PDOC H&P ---
History of Present Illness Admission Date/PCP: [facility] Patient complains of: Generalized malaise and bilateral lower extremity edema History of Present Illness: ERIC LOUIS is a 72 year old male status post open appendectomy about a week ago who was discharged 3 days ago but has had generalized malaise with extremely poor appetite and occasional nausea and vomiting. Some abdominal discomfort associated with wound. Very little bowel movements. With his failure to thrive and emergence of bilateral lower extremity edema he was brought into the emergency department by his who was concerned about his lack of improvement. Patient really minimizes his symptoms but apparently has been telling his that he does not feel well. Past Medical History Cardiac Medical History: Reports: Hypertension Denies: Coronary Artery Disease Pulmonary Medical History: Denies: Asthma, Chronic Obstructive Pulmonary Disease (COPD) Neurological Medical History: Denies: Seizures Endocrine Medical History: Reports: Diabetes Mellitus Type 2 Denies: Diabetes Mellitus Type 1, Hyperthyroidism, Hypothyroidism GI Medical History: Denies: Cirrhosis, Hepatitis Past Surgical History Past Surgical History: Reports: Appendectomy - 1 week ago, Cholecystectomy Social History Smoking Status: Unknown if Ever Smoked Frequency of Alcohol Use: None Hx Recreational Drug Use: No Drugs: None Hx Prescription Drug Abuse: No Family History Family History: DM, Hypertension Parental Family History Reviewed: No Children Family History Reviewed: No Sibling(s) Family History Reviewed.: No Medication/Allergy Home Medications: Amlodipine Besylate [Norvasc 5 mg Tablet] 5 mg PO DAILY 10/08/18 Captopril [Capoten 50 mg Tablet] 50 mg PO Q12 10/08/18 Hydrochlorothiazide [Hydrodiuril 25 mg Tablet] 25 mg PO QAM 10/08/18 Insulin Glargine,Hum.rec.anlog [Lantus Insulin 100 Unit/mL] 40 unit SUBCUT QHS 10/08/18 Insulin Regular, Human [Novolin R (Reg) Insulin 100 unit/mL] 0 unit SQ AC 10/08/18 Metformin HCl [Glucophage 500 mg Tablet] 500 mg PO BIDACBS 10/08/18 Omeprazole 20 mg PO DAILY 10/08/18 Potassium Chloride [Klor-Con 10 Meq Capsule ER] 20 meq PO BID 10/08/18 Pravastatin Sodium [Pravachol] 20 mg PO QHS 10/08/18 Buspirone HCl [Buspar 10 mg Tablet] 10 mg PO Q12 #60 tablet 10/12/18 Divalproex Sodium [Depakote] 250 mg PO BID #120 tablet. 10/12/18 Risperidone [Risperdal 0.25 mg Tablet] 0.25 mg PO DAILYP PRN #30 tablet 10/12/18 Allergies/Adverse Reactions: aspirin Allergy (Verified 10/15/18 12:07) Iodinated Contrast- Oral and IV Dye Allergy (Verified 10/15/18 12:07) Physical Exam Vital Signs: Temp Pulse Resp BP Pulse Ox 98.6 F 74 16 141/61 H 97 10/15/18 18:31 10/15/18 18:31 10/15/18 18:31 10/15/18 18:31 10/15/18 18:31 Intake & Output 10/14/18 10/15/18 10/16/18 06:59 06:59 06:59 Weight 106.8 kg General appearance: PRESENT: no acute distress, disheveled Eye exam: PRESENT: conjunctiva pink Respiratory exam: PRESENT: clear to auscultation roger Cardiovascular exam: PRESENT: RRR GI/Abdominal exam: PRESENT: other - Soft, nondistended, right lower quadrant wound is clean dry and intact with sutures in place with some exposure of subcutaneous fat but no erythema no drainage and no fluctuance. Some mild tend erness in the right lower quadrant but no peritoneal signs. Extremities exam: PRESENT: +1 edema - Bilateral lower extremity Neurological exam: PRESENT: alert, awake Psychiatric exam: PRESENT: flat affect Skin exam: PRESENT: warm Results Laboratory Results: 10/15/18 14:13 10/15/18 14:13 10/15/18 10/15/18 10/15/18 14:13 14:13 18:34 WBC 14.4 H RBC 3.03 L Hgb 9.1 L Hct 26.9 L MCV 89 MCH 30.0 MCHC 33.9 RDW 14.3 H Plt Count 272 Seg Neutrophils % Not Reportable Lymphocytes % Not Reportable Monocytes % Not Reportable Eosinophils % Not Reportable Basophils % Not Reportable Absolute Neutrophils Not Reportable Absolute Lymphocytes Not Reportable Absolute Monocytes Not Reportable Absolute Eosinophils Not Reportable Absolute Basophils Not Reportable Sodium 136.4 L Potassium 3.8 Chloride 101 Carbon Dioxide 26 Anion Gap 9 BUN 14 Creatinine 0.78 Est GFR ( Amer) > 60 Est GFR (Non-Af Amer) > 60 Glucose 100 Calcium 9.1 Total Bilirubin 0.6 AST 39 ALT 24 Alkaline Phosphatase 60 Total Protein 6.1 L Albumin 3.1 L Urine Color YELLOW Urine Appearance SLIGHTLY-CLOUDY Urine pH 7.0 Ur Specific [place] 1.013 Urine Protein NEGATIVE Urine Glucose (UA) NEGATIVE Urine Ketones TRACE H Urine Blood NEGATIVE Urine Nitrite NEGATIVE Ur Leukocyte Esterase NEGATIVE Urine WBC (Auto) 1 Urine RBC (Auto) 1 10/15/18 14:13 Troponin I < 0.012 NT-Pro-B Natriuret Pep 500 Impressions: Chest X-Ray 10/15/18 13:57 IMPRESSION: Small right pleural effusion. No other significant findings. Assessment & Plan - Diagnosis (1) Dehydration Is this a current diagnosis for this admission?: Yes Plan: Patient felt much better after IV fluids. Will continue maintenance IV fluids. Patient is total body fluid overloaded but low intravascularly. His urine yessica lysis was taken after hydration. (2) Failure to thrive in adult Is this a current diagnosis for this admission?: Yes Plan: Status post open appendectomy with poor nutritional intake at home. Will admit the patient for IV fluids and make sure he is taking sufficient nutrition p.o. prior to discharge home.
[2018-10-15] MEDS ORDERED: GLUCAGON,HUMAN RECOMB 1 MG INJ IM PRN (23:40)
[2018-10-15] MEDS ORDERED: DEXTROSE 40% GEL 15 GM TUBE PO PRN ×2 (23:40)
[2018-10-15] MEDS ORDERED: DEXTROSE 50%-WATER 25 GM/50 ML DISP.SYRIN IV PRN ×2 (23:40)
[2018-10-15] MEDS ORDERED: DIVALPROEX SODIUM 250 MG TABLET.DR PO ONE (23:59)
[2018-10-15] MEDS ORDERED: ATORVASTATIN CALCIUM 10 MG TABLET PO ONE (23:59)
[2018-10-15] MEDS ORDERED: CAPTOPRIL 25 MG TABLET PO ONE (23:59)
[2018-10-16] MEDS ORDERED: INSULIN REG, HUMAN 100 UNIT/ML 3 ML VIAL (PYX) SUBCUT ONE (03:45)
[2018-10-16] MEDS: DEXTROSE 5%-1/2 NORMAL SALINE 1,000 ML IV PRN (05:06)
[2018-10-16] MEDS: PANTOPRAZOLE SODIUM 20 MG TABLET.DR PO SCH (06:22)
[2018-10-16] MEDS: METFORMIN HCL 500 MG TABLET PO SCH ×2 (08:07→16:27)
[2018-10-16] MEDS: INSULIN REG, HUMAN 100 UNIT/ML 3 ML VIAL (PYX) SUBCUT SCH ×4 (08:12→22:24)
[2018-10-16 08:41] LABS: HEMATOCRIT 25.5 % (37.9-51.0); HEMOGLOBIN 8.5 g/dL (13.5-17.0); MEAN CORPUSCULAR HEMOGLOBIN 29.6 pg (27.0-33.4); MEAN CORPUSCULAR HGB CONC 33.4 g/dL (32.0-36.0); MEAN CORPUSCULAR VOLUME 89 fl (80-97); PLATELET COUNT 247 10^3/uL (150-450); RED BLOOD COUNT 2.88 10^6/uL (4.35-5.55); RED CELL DISTRIBUTION WIDTH 14.4 % (11.5-14.0); WHITE BLOOD COUNT 12.3 10^3/uL (4.0-10.5)
[2018-10-16 09:13] LABS: ANION GAP 8 (5-19); BLOOD UREA NITROGEN 16 mg/dL (7-20); CALCIUM 8.7 mg/dL (8.4-10.2); CARBON DIOXIDE 27 mmol/L (22-30); CHLORIDE 101 mmol/L (98-107); GLUCOSE 183 mg/dL (75-110); POTASSIUM 3.9 mmol/L (3.6-5.0); SODIUM 136.4 mmol/L (137-145)
[2018-10-16] MEDS: ENOXAPARIN SODIUM INJ 40 MG/0.4 ML DISP.SYRIN SUBCUT SCH (10:27)
[2018-10-16] MEDS: DIVALPROEX SODIUM 250 MG TABLET.DR PO SCH ×2 (10:27→17:28)
[2018-10-16] MEDS: AMLODIPINE BESYLATE 5 MG TABLET PO SCH (10:27)
[2018-10-16] MEDS: CAPTOPRIL 25 MG TABLET PO SCH ×2 (10:48→22:23)
--- NOTE | 2018-10-16 16:30 | PDOC CONSULTATION ---
Consultation Consult Date: 10/16/18 Attending physician:: MARQUIS ALVARENGA Consult reason:: dehydration, poor p.o. intake, DM, HTN History of Present Illness Admission Date/PCP: 10/16/18 00:12 [facility] History of Present Illness: ERIC LOUIS is a 72 year old male who recently underwent an appendectomy and was readmitted to the hospital for a constellation of symptoms including abdominal pain, poor p.o. intake, and "not feeling good." He was admitted by the surgical service. CT scan ruled out intra-abdominal abscess. He had been empirically placed on antibiotics. He was started on some IV fluids. Initially he was not eating very well. Our service was consulted to help with his dehyd ration, his poor p.o. intake, his history of hypertension, and his history of diabetes mellitus. When I went in to see him today, he was sitting up in the chair and had finished his lunch. He had eaten everything on his tray. He said he ate all of his breakfast this morning. He says his urine output is been good since being on IV fluids. His blood pressure at this time is well controlled on his home medications. He had to come off of his metformin for a CT scan of his belly with contrast, was currently being managed with a sliding scale. He is been off of his metformin for approximately 24 hours at this point. He was given some steroids and Benadryl for pretreatment prior to contrast, and it made his blood sugars go up. They have trended back down into a more manageable range at this time. Past Medical History Cardiac Medical History: Reports: Hypertension Denies: Congestive Heart Failure, Coronary Artery Disease, Myocardial Infarction Pulmonary Medical History: Denies: Asthma, Bronchitis, Chronic Obstructive Pulmonary Disease (COPD), Pneumonia, Tuberculosis Neurological Medical History: Denies: Seizures Endocrine Medical History: Reports: Diabetes Mellitus Type 2 Denies: Diabetes Mellitus Type 1, Hyperthyroidism, Hypothyroidism Renal/ Medical History: Denies: End Stage Renal Disease GI Medical History: Reports: Gastroesophageal Reflux Disease Denies: Cirrhosis, Hepatitis Musculoskeltal Medical History: Denies: Arthritis Psychiatric Medical History: Reports: Depression Denies: Bipolar Disorder Hematology: Denies: Anemia, Bleeding Tendencies Past Surgical History Past Surgical History: Reports: Appendectomy - 1 week ago, Cholecystectomy Social History Smoking Status: Former Smoker Frequency of Alcohol Use: None Hx Recreational Drug Use: No Drugs: None Hx Prescription Drug Abuse: No - Advance Directive Resuscitation Status: Full Code Family History Family History: DM, Hypertension Parental Family History Reviewed: Yes Children Family History Reviewed: Yes Sibling(s) Family History Reviewed.: Yes Medication/Allergy Home Medications: Amlodipine Besylate [Norvasc 5 mg Tablet] 5 mg PO DAILY 10/08/18 Captopril [Capoten 50 mg Tablet] 50 mg PO Q12 10/08/18 Hydrochlorothiazide [Hydrodiuril 25 mg Tablet] 25 mg PO QAM 10/08/18 Insulin Glargine,Hum.rec.anlog [Lantus Insulin 100 Unit/mL] 40 unit SUBCUT QHS 10/08/18 Metformin HCl [Glucophage 500 mg Tablet] 1,000 mg PO BIDACBS 10/08/18 Omeprazole 20 mg PO DAILY 10/08/18 Potassium Chloride [Klor-Con 10 Meq Capsule ER] 20 meq PO BID 10/08/18 Pravastatin Sodium [Pravachol] 20 mg PO QHS 10/08/18 Buspirone HCl [Buspar 10 mg Tablet] 10 mg PO Q12 #60 tablet 10/12/18 Divalproex Sodium [Depakote] 250 mg PO BID #120 tablet. 10/12/18 Risperidone [Risperdal 0.25 mg Tablet] 0.25 mg PO PCSUPPER 10/16/18 Allergies/Adverse Reactions: aspirin Allergy (Verified 10/15/18 12:07) Iodinated Contrast- Oral and IV Dye Allergy (Verified 10/15/18 12:07) Review of Systems All systems: reviewed and no additional remarkable complaints except as stated - All systems reviewed and were negative except as noted in the HPI Physical Exam Vital Signs: Temp Pulse Resp BP Pulse Ox 98.3 F 87 14 149/68 H 97 10/16/18 14:51 10/16/18 14:51 10/16/18 14:51 10/16/18 14:51 10/16/18 14:51 Intake & Output 10/15/18 10/16/18 10/17/18 06:59 06:59 06:59 Intake Total 2250 Output Total 200 Balance -200 2250 Weight 105.4 kg 105.4 kg General appearance: PRESENT: no acute distress, cooperative, disheveled, morbidly obese Head exam: PRESENT: atraumatic, normocephalic Eye exam: PRESENT: EOMI, PERRLA. ABSENT: conjunctival injection, nystagmus, scleral icterus Ear exam: PRESENT: normal external ear exam Mouth exam: PRESENT: moist, neck supple Throat exam: ABSENT: post pharyngeal erythema Neck exam: PRESENT: full ROM. ABSENT: carotid bruit, JVD, lymphadenopathy, meningismus, tenderness, thyromegaly Respiratory exam: PRESENT: clear to auscultation roger, symmetrical, unlabored. ABSENT: accessory muscle use, chest wall tenderness, crackles, prolonged expiratory phas, rhonchi, tachypnea, wheezes Cardiovascular exam: PRESENT: RRR, +S1, +S2 Pulses: PRESENT: normal carotid pulses Vascular exam: PRESENT: normal capillary refill GI/Abdominal exam: PRESENT: normal bowel sounds, soft, other - Clean bandage cov ering incision on the right lower quadrant. ABSENT: distended, guarding, rebound, tenderness Extremities exam: PRESENT: other - Trace lower extremity edema below the knees bilateral. ABSENT: clubbing, pedal edema Musculoskeletal exam: PRESENT: normal inspection. ABSENT: deformity Neurological exam: PRESENT: alert, awake, oriented to person, oriented to place, oriented to situation, CN II-XII grossly intact. ABSENT: motor sensory deficit Psychiatric exam: PRESENT: appropriate affect, normal mood Skin exam: PRESENT: dry, warm Results Laboratory Results: 10/16/18 08:28 10/16/18 08:28 10/15/18 10/16/18 10/16/18 18:34 08:28 08:28 WBC 12.3 H RBC 2.88 L Hgb 8.5 L Hct 25.5 L MCV 89 MCH 29.6 MCHC 33.4 RDW 14.4 H Plt Count 247 Sodium 136.4 L Potassium 3.9 Chloride 101 Carbon Dioxide 27 Anion Gap 8 BUN 16 Creatinine 0.85 Est GFR ( Amer) > 60 Est GFR (Non-Af Amer) > 60 Glucose 183 H Calcium 8.7 Urine Color YELLOW Urine Appearance SLIGHTLY-CLOUDY Urine pH 7.0 Ur Specific [place] 1.013 Urine Protein NEGATIVE Urine Glucose (UA) NEGATIVE Urine Ketones TRACE H Urine Blood NEGATIVE Urine Nitrite NEGATIVE Ur Leukocyte Esterase NEGATIVE Urine WBC (Auto) 1 Urine RBC (Auto) 1 10/15/18 14:13 Troponin I < 0.012 NT-Pro-B Natriuret Pep 500 Impressions: Chest X-Ray 10/15/18 13:57 IMPRESSION: Small right pleural effusion. No other significant findings. Venous Doppler Study 10/15/18 15:50 IMPRESSION: No evidence of deep venous thrombosis in the bilateral lower extremities. Abdomen/Pelvis CT 10/15/18 19:02 IMPRESSION: Postoperative changes of recent appendectomy. No abscess is seen. Assessment and Plan - Diagnosis (1) Dehydration Is this a current diagnosis for this admission?: Yes Plan: Resolved with IV fluids, good urine output. (2) Failure to thrive in adult Is this a current diagnosis for this admission?: Yes Plan: This is resolved as well. He has eaten his last 2 meals, finishing everything on his plate. (3) Diabetes mellitus type 2 in obese Is this a current diagnosis for this admission?: Yes Plan: In another day he can resume his metformin. His blood sugars have been covered in the meantime with sliding scale insulin. The further away he gets from the shot of Solu-Medrol he got, the easier to control his blood sugars will be. Currently in the 170s and 180s pre-meal. (4) Hypertension Qualifiers: Hypertension type: essential hypertension Qualified Code(s): I10 - Essential (primary) hypertension Is this a current diagnosis for this admission?: Yes Plan: Well-controlled on his home medications - Time Time Spent with patient: 35 or more minutes - Plan Summary Plan Summary: He is no longer dehydrated, he is eating everything is being brought to him, and his blood sugars are reasonable and his blood pressures well controlled. We carmen l sign off at this time. If there is anything else we can help with on this patient, please reconsult.
--- NOTE | 2018-10-16 19:24 | PDOC PROGRESS REPORT ---
Subjective Subjective:: This is a 72-year-old male status post open appendectomy. The patient was readmitted for malaise and failure to thrive. He had nausea at home with difficulty eating. Today the patient feels better. He is eating without difficulty. He feels hungry. He does report drainage at his surgical site. He denies chest pain, shortness of breath, dizziness, melena, hematochezia, vomiting, blurry vision, fevers, or chills. Reason For Visit: DEHYDRATION,FAILURE TO THRIVE Physical Exam Vital Signs: Temp Pulse Resp BP Pulse Ox 98.3 F 87 14 149/68 H 97 10/16/18 14:51 10/16/18 14:51 10/16/18 14:51 10/16/18 14:51 10/16/18 14:51 Intake & Output 10/15/18 10/16/18 10/17/18 06:59 06:59 06:59 Intake Total 2250 Output Total 200 Balance -200 2250 Weight 105.4 kg 105.4 kg General appearance: PRESENT: no acute distress, cooperative Head exam: PRESENT: atraumatic, normocephalic Eye exam: PRESENT: EOMI, PERRLA Mouth exam: PRESENT: moist, neck supple Neck exam: ABSENT: meningismus, tenderness, thyromegaly, tracheal deviation Respiratory exam: PRESENT: unlabored. ABSENT: chest wall tenderness, tachypnea, wheezes Cardiovascular exam: PRESENT: RRR Pulses: PRESENT: normal radial pulses GI/Abdominal exam: PRESENT: soft, tenderness, other - Seropurulent material draining from right lower quadrant wound. ABSENT: distended, firm Rectal exam: PRESENT: deferred Extremities exam: ABSENT: clubbing Musculoskeletal exam: ABSENT: deformity Neurological exam: PRESENT: alert, awake, oriented to person, oriented to place, oriented to time, oriented to situation Psychiatric exam: ABSENT: agitated, anxious, depressed Focused psych exam: ABSENT: delusional Skin exam: ABSENT: cyanosis, erythema, jaundice Results Laboratory Results: 10/16/18 08:28 10/16/18 08:28 10/16/18 10/16/18 08:28 08:28 WBC 12.3 H RBC 2.88 L Hgb 8.5 L Hct 25.5 L MCV 89 MCH 29.6 MCHC 33.4 RDW 14.4 H Plt Count 247 Sodium 136.4 L Potassium 3.9 Chloride 101 Carbon Dioxide 27 Anion Gap 8 BUN 16 Creatinine 0.85 Est GFR ( Amer) > 60 Est GFR (Non-Af Amer) > 60 Glucose 183 H Calcium 8.7 10/15/18 14:13 Troponin I < 0.012 NT-Pro-B Natriuret Pep 500 Impressions: Chest X-Ray 10/15/18 13:57 IMPRESSION: Small right pleural effusion. No other significant findings. Venous Doppler Study 10/15/18 15:50 IMPRESSION: No evidence of deep venous thrombosis in the bilateral lower extremities. Abdomen/Pelvis CT 10/15/18 19:02 IMPRESSION: Postoperative changes of recent appendectomy. No abscess is seen. Assessment & Plan - Diagnosis (1) Surgical site infection Is this a current diagnosis for this admission?: Yes - Plan Summary Plan Summary: This is a 72-year-old male status post open appendectomy. The patient's right lower quadrant wound is erythematous and draining seropurulent material. At the bedside, I opened several stitches to reveal a subcutaneous abscess. This was irrigated and drained. The wound was then packed with a damp 4 x 4 gauze. Initiate twice daily dressing changes with packing. Advance diet. If the patient does well, plan for discharge tomorrow.
[2018-10-16] MEDS ORDERED: ATORVASTATIN CALCIUM 10 MG TABLET PO SCH (22:00)
[2018-10-17] MEDS: DEXTROSE 5%-1/2 NORMAL SALINE 1,000 ML IV PRN (00:27)
[2018-10-17] MEDS: PANTOPRAZOLE SODIUM 20 MG TABLET.DR PO SCH (06:23)
[2018-10-17] MEDS: INSULIN REG, HUMAN 100 UNIT/ML 3 ML VIAL (PYX) SUBCUT SCH (08:00)
[2018-10-17] MEDS: METFORMIN HCL 500 MG TABLET PO SCH (08:03)
--- NOTE | 2018-10-17 09:49 | PDOC PROGRESS REPORT ---
Subjective Progress Note for:: 10/17/18 Subjective:: Feels much better. Tolerating diet well. Reason For Visit: DEHYDRATION,FAILURE TO THRIVE Physical Exam Vital Signs: Temp Pulse Resp BP Pulse Ox 98.4 F 64 18 135/56 H 95 10/17/18 07:48 10/17/18 07:48 10/17/18 07:48 10/17/18 07:48 10/17/18 07:48 Intake & Output 10/16/18 10/17/18 10/18/18 06:59 06:59 06:59 Intake Total 3218 Output Total 200 Balance -200 3218 Weight 105.4 kg 106.2 kg General appearance: PRESENT: no acute distress, cooperative Respiratory exam: PRESENT: clear to auscultation roger Cardiovascular exam: PRESENT: RRR GI/Abdominal exam: PRESENT: other - Soft, nondistended, nontender to palpation. Right lower quadrant wound appears clean with no erythema and no drainage. Packing was changed today. Results Laboratory Results: 10/16/18 08:28 10/16/18 08:28 10/15/18 14:13 Troponin I < 0.012 NT-Pro-B Natriuret Pep 500 Impressions: Chest X-Ray 10/15/18 13:57 IMPRESSION: Small right pleural effusion. No other significant findings. Venous Doppler Study 10/15/18 15:50 IMPRESSION: No evidence of deep venous thrombosis in the bilateral lower extremities. Abdomen/Pelvis CT 10/15/18 19:02 IMPRESSION: Postoperative changes of recent appendectomy. No abscess is seen. Assessment & Plan - Diagnosis (1) Dehydration Is this a current diagnosis for this admission?: Yes (2) Failure to thrive in adult Is this a current diagnosis for this admission?: Yes Plan: Patient looks much better. Tolerating diet well. We will plan to discharge patient home today. (3) Wound infection after surgery Is this a current diagnosis for this admission?: Yes Plan: Wound looks clean. Will have patient do wet-to-dry dressing changes at home. I have informed the patient on how to do it.
--- NOTE | 2018-10-17 10:09 | DISCHARGE SUMMARY E ---
Discharge Summary NAME: ERIC LOUIS : 1945 AGE: 72Y ADMITTED: 10/15/2018 DISCHARGED: 10/17/2018 DISCHARGE DIAGNOSES: 1. Failure to thrive. 2. Postsurgical wound infection. 3. Dehydration. HOSPITAL COURSE: The patient was managed with IV fluids and nutritional support. His wound was opened further and wound infection was noted. Dressing changes were begun, and the wound looked very clean at the time of discharge. The patient is now being discharged to home in good condition. He will follow up at [facility] next week. He is encouraged to stay active but avoid strenuous activity. Wound care instructions were given to the patient, mainly wet-to-dry dressing changes to the right lower quadrant wound at least once a day. He may shower. He is to resume all of his home medications. Of note, by the time of discharge he was feeling quite well, was tolerating a diet very well at the time of discharge, and was feeling much better than at the time of admission. Discharge diet is a diabetic diet. DICTATING PHYSICIAN: TITUS ALVARENGA M.D. [id number] PHY#: [id number] ID: [id number] JOB#: [id number] ACCT: [id number] cc:TITUS ALVARENGA M.D. [facility], [facility]
[2018-10-17] MEDS: ENOXAPARIN SODIUM INJ 40 MG/0.4 ML DISP.SYRIN SUBCUT SCH (10:37)
[2018-10-17] MEDS: AMLODIPINE BESYLATE 5 MG TABLET PO SCH (10:38)
[2018-10-17] MEDS: DIVALPROEX SODIUM 250 MG TABLET.DR PO SCH (10:38)
[2018-10-17] MEDS: CAPTOPRIL 25 MG TABLET PO SCH (10:40)
[2018-10-17 12:05] VITALS: BP 139/56
== END 2018-10-17 12:15 | disposition home health service (06) ==
LOC: ER 11:58 → EH 10-16 00:12 → 2N 10-16 04:00
PROVIDERS: ATTEND Surgery
PROC: 0J980ZZ Drainage of Abdomen Subcutaneous Tissue and Fascia, Open Approach (ICD-10-PCS; principal; 2018-10-16)
DX: R62.7 Adult failure to thrive (principal); T81.41XA Infection following a procedure, superficial incisional surgical site, initial encounter; Y83.8 Other surgical procedures as the cause of abnormal reaction of the patient, or of later complication, without mention of misadventure at the time of the procedure; E86.0 Dehydration; E11.9 Type 2 diabetes mellitus without complications; E66.01 Morbid (severe) obesity due to excess calories; I10 Essential (primary) hypertension; R60.0 Localized edema; R06.02 Shortness of breath; J90 Pleural effusion, not elsewhere classified; D72.829 Elevated white blood cell count, unspecified; I44.0 Atrioventricular block, first degree; Z82.49 Family history of ischemic heart disease and other diseases of the circulatory system; Z90.49 Acquired absence of other specified parts of digestive tract; Z79.899 Other long term (current) drug therapy; Z79.84 Long term (current) use of oral hypoglycemic drugs; Z87.891 Personal history of nicotine dependence
CPT/HCPCS: 93005; 99285; 96361; 96374; 96375; 36415 ×2; 82962 ×2; 85025; 85027; 80048; 80053; 81001; 84484; 83880; 93970; 71045; 74177; 93010; 10180; G0378 ×3; J3490 ×4; J1200; J2930; J1650 ×2; J1815 ×2; J7030

== ENCOUNTER → 2019-03-18 | Outpatient (CLI) | payer OTHER, MEDICARE ==
--- NOTE | 2019-03-18 19:51 | NEURO WORKBENCH EEG REPORT ---
EEG Report Patient: Joaquin Bhat ID: [id number] Referring Doctor: Matt Castro MD DOS: 03/18/2019 Medications: metformin, captopril, omeprazole, potassium, risperidone, hydrochlorothiazide, buspirone, amlodipine, pravastatin, divalproex, donepezil History This is a 73 year old right handed man with a history of hypertension, diabetes, appendectomy, gall bladder removal, hypercholesterolemia, cardiac disease, memory loss, with movements while sleeping per his . This EEG was requested for movements. EEG Interpretation This EEG was recorded in the awake and minimal drowsy states. The awake EEG is characterized by a poorly organized background with a moderately-developed and reactive posterior dominant rhythm of 7.5Hz. The remainder of the background consisted of a mix of mostly theta with some delta activity. There was frontal intermittent rhythmic delta activity (FIRDA) present. Drowsiness was poorly characterized but showed mild slowing of the background rhythms. Vertex waves were poorly formed but seen in the midline head regions. Photic stimulation resulted in no significant changes. There were rare bilateral independent temporal sharp waves. The EKG showed periods of an irregular rhythm and PVCs noted. This EEG was impaired due to FP1 electrode artifact throughout the recording; this significantly limited interpretation of the left hemisphere. EEG Classification Sharp waves, bi-temporal, independent, rare Generalized background slowing FIRDA EEG Impression This EEG is abnormal. The sharp waves are consistent with potentially epileptogenic foci in the temporal regions. Clinical correlation is recommended. And correlation with neuro-imaging would be of interest. The generalized background slowing and FIRDA are consistent with nonspecific diffuse cerebral dysfunction. INTERPRETING NEUROLOGIST: Korina Bazzi MD, [facility] Board Certified in Neurology, with special qualification in Child Neurology, and in Clinical Neurophysiology [facility]
== END ==
LOC: NEURO 12:40
PROVIDERS: ATTEND Pediatrics
DX: F02.81 Dementia in other diseases classified elsewhere, unspecified severity, with behavioral disturbance (principal); R41.840 Attention and concentration deficit; R25.8 Other abnormal involuntary movements
CPT/HCPCS: 95819

== ENCOUNTER 2019-07-14 13:18 | Emergency (ER) | payer OTHER, MEDICARE ==
--- NOTE | 2019-07-14 14:07 | ER Document Report ---
ED Medical Screen (RME) - General Chief Complaint: Diarrhea Stated Complaint: [place] REFERRED Time Seen by Provider: 07/14/19 14:00 Primary Care Provider: [facility] [Primary Care Provider] - Follow up as needed Mode of Arrival: Ambulatory Information source: Patient Notes: Patient was sent here from the [place] [facility] for evaluation of diarrhea these had for the past 4 months. Patient denies any nausea vomiting or abdominal pain. Patient denies any fever. Patient does report feeling weak and lightheaded. Patient reports a history of hypertension diabetes and anemia. I have greeted and performed a rapid initial assessment of this patient. A comprehensive ED assessment and evaluation of the patient, analysis of test results and completion of the medical decision making process will be conducted by additional ED providers. TRAVEL OUTSIDE OF THE [place] IN LAST 30 DAYS: No - Related Data Allergies/Adverse Reactions: aspirin Allergy (Verified 07/14/19 14:05) Iodinated Contrast Media Allergy (Verified 07/14/19 14:05) Past Medical History - Social History Chew tobacco use (# tins/day): No Drug Abuse: None - Past Medical History Cardiac Medical History: Reports: Hx Hypertension Denies: Hx Congestive Heart Failure, Hx Coronary Artery Disease, Hx Heart Attack Pulmonary Medical History: Denies: Hx Asthma, Hx Bronchitis, Hx COPD, Hx Pneumonia, Hx Tuberculosis Neurological Medical History: Denies: Hx Seizures, Hx Parkinson's Disease Endocrine Medical History: Reports: Hx Diabetes Mellitus Type 2. Denies: Hx Diabetes Mellitus Type 1, Hx Hyperthyroidism, Hx Hypothyroidism Renal/ Medical History: Denies: Hx Benign Prostatic Hyperplasia, Hx End Stage Renal Disease, Hx Kidney Stones, Hx Peritoneal Dialysis GI Medical History: Reports: Hx Gastroesophageal Reflux Disease, Hx Ulcer - stomach. Denies: Hx Cirrhosis, Hx Hepatitis Musculoskeltal Medical History: Denies Hx Arthritis, Denies Hx Multiple Sclerosis Psychiatric Medical History: Reports: Hx Depression Denies: Hx Bipolar Disorder, Hx Schizophrenia Infectious Medical History: Denies: Hx Hepatitis Past Surgical History: Reports: Hx Appendectomy - 1 week ago, Hx Cholecystectomy Physical Exam - Vital signs Vitals: Temp Pulse Resp BP Pulse Ox 98.1 F 84 18 143/68 H 96 07/14/19 13:19 07/14/19 13:19 07/14/19 13:19 07/14/19 13:19 07/14/19 13:19 - General General appearance: Appears well, Alert - Abdominal Inspection: Morbidly Obese Tenderness: Nontender Course - Vital Signs Vital signs: Temp Pulse Resp BP Pulse Ox 98.1 F 84 18 143/68 H 96 07/14/19 13:30 07/14/19 13:30 07/14/19 13:30 07/14/19 13:30 07/14/19 13:30 Doctor's Discharge - Discharge Referrals: [facility] [Primary Care Provider] - Follow up as needed
[2019-07-14 14:49] LABS: ABSOLUTE BASOPHILS # (AUTO) 0.1 10^3/uL (0.0-0.2); ABSOLUTE EOSINOPHILS # (AUTO) 0.1 10^3/uL (0.0-0.6); ABSOLUTE LYMPHOCYTES (AUTO) 1.8 10^3/uL (0.5-4.7); ABSOLUTE MONOCYTES (AUTO) 0.8 10^3/uL (0.1-1.4); ABSOLUTE NEUT (AUTO) 4.9 10^3/uL (1.7-8.2); BASOPHILS % (AUTO) 0.7 % (0-2); EOSINOPHILS % (AUTO) 1.1 % (0-6); HEMATOCRIT 37.6 % (37.9-51.0); HEMOGLOBIN 12.3 g/dL (13.5-17.0); LYMPHOCYTES % (AUTO) 23.8 % (13-45); MEAN CORPUSCULAR HEMOGLOBIN 24.9 pg (27.0-33.4); MEAN CORPUSCULAR HGB CONC 32.7 g/dL (32.0-36.0); MEAN CORPUSCULAR VOLUME 76 fl (80-97); MONOCYTES % (AUTO) 10.6 % (3-13); PLATELET COUNT 146 10^3/uL (150-450); RED BLOOD COUNT 4.94 10^6/uL (4.35-5.55); SEGMENTED NEUTROPHILS % (AUTO) 63.8 % (42-78); TOTAL CELLS COUNTED % (AUTO) 100 %; WHITE BLOOD COUNT 7.7 10^3/uL (4.0-10.5)
[2019-07-14 15:01] LABS: APPEARANCE,URINE CLEAR; BILIRUBIN,URINE NEGATIVE (NEGATIVE); COLOR,URINE YELLOW; GLUCOSE, URINE 50 mg/dL (NEGATIVE); KETONES,URINE TRACE mg/dL (NEGATIVE); LEUKOCYTE ESTERASE,URINE NEGATIVE (NEGATIVE); NITRITE,URINE NEGATIVE (NEGATIVE); PROTEIN,URINE NEGATIVE (NEGATIVE); URINE SPECIFIC GRAVITY 1.017; UROBILINOGEN,URINE NEGATIVE mg/dL (<2.0)
[2019-07-14 15:10] LABS: ALBUMIN 3.9 g/dL (3.5-5.0); ALKALINE PHOSPHATASE 58 U/L (38-126); ANION GAP 11 (5-19); ASPARTATE AMINO TRANSFERASE 26 U/L (17-59); BILIRUBIN,DIRECT 0.1 mg/dL (0.0-0.4); BILIRUBIN,TOTAL 0.6 mg/dL (0.2-1.3); BLOOD UREA NITROGEN 13 mg/dL (7-20); CALCIUM 9.2 mg/dL (8.4-10.2); CARBON DIOXIDE 27 mmol/L (22-30); CHLORIDE 102 mmol/L (98-107); GLUCOSE 113 mg/dL (75-110); POTASSIUM 3.7 mmol/L (3.6-5.0)
[2019-07-14] MEDS ORDERED: DIPHENHYDRAMINE HCL 50 MG/ML VIAL IV ONE (15:48)
[2019-07-14] MEDS ORDERED: METHYLPREDNISOLONE INJ 125 MG/2 ML SDV IV ONE (15:48)
[2019-07-14] MEDS ORDERED: FAMOTIDINE INJ/PF 20 MG/2 ML SDV IV ONE (15:48)
--- NOTE | 2019-07-14 15:48 | ER Document Report ---
ED General - General Chief Complaint: Diarrhea Stated Complaint: [facility] REFERRED Time Seen by Provider: 07/14/19 14:00 Primary Care Provider: JOSE,AL [Primary Care Provider] - Follow up as needed Mode of Arrival: Ambulatory Notes: 73-year-old male presents with diarrhea and 17 pound weight loss over 4 months. Patient was sent by the AL over for stool cultures and CT scan of his abdomen/pelvis. Patient denies any blood in the stool. Patient states at this point it is mostly just water and usually no stool. Patient also states he has not had an appetite. Associated lightheadedness intermittently "long time" that occurs upon waking up in the morning. Patient was told by the AL that he was "severely anemic" and was placed on iron. Patient denies any nausea/vomiting/constipation, abdominal pain, rectal pain, fever/chills, chest pain, shortness of breath, bleeding from anywhere. Patient denies any recent antibiotics or travel outside of the country. Patient states he had an loy endectomy done in September and that was the last time he was on antibiotics. Patient states last colonoscopy was 4 years ago and he was told to return in 5 years. Patient had colonoscopy done at the [facility]. Patient was told that should he has "severe polyps" and had a biopsy that his states they were told were "precancerous." Patient's states she made an appointment with Dr. Cano on August 06 to to schedule colonoscopy. TRAVEL OUTSIDE OF THE [place] IN LAST 30 DAYS: No - Related Data Allergies/Adverse Reactions: aspirin Allergy (Verified 07/14/19 14:05) Iodinated Contrast Media Allergy (Verified 07/14/19 14:05) Past Medical History - General Information source: Patient - Social History Smoking Status: Never Smoker Chew tobacco use (# tins/day): No Drug Abuse: None Family History: DM, Hypertension Patient has suicidal ideation: No Patient has homicidal ideation: No - Past Medical History Cardiac Medical History: Reports: Hx Hypertension Denies: Hx Congestive Heart Failure, Hx Coronary Artery Disease, Hx Heart Attack Pulmonary Medical History: Denies: Hx Asthma, Hx Bronchitis, Hx COPD, Hx Pneumonia, Hx Tuberculosis Neurological Medical History: Denies: Hx Seizures, Hx Parkinson's Disease Endocrine Medical History: Reports: Hx Diabetes Mellitus Type 2. Denies: Hx Diabetes Mellitus Type 1, Hx Hyperthyroidism, Hx Hypothyroidism Renal/ Medical History: Denies: Hx Benign Prostatic Hyperplasia, Hx End Stage Renal Disease, Hx Kidney Stones, Hx Peritoneal Dialysis GI Medical History: Reports: Hx Gastroesophageal Reflux Disease, Hx Ulcer - stomach. Denies: Hx Cirrhosis, Hx Hepatitis Musculoskeletal Medical History: Denies Hx Arthritis, Denies Hx Multiple Sclerosis Psychiatric Medical History: Reports: Hx Depression Denies: Hx Bipolar Disorder, Hx Schizophrenia Infectious Medical History: Denies: Hx Hepatitis Past Surgical History: Reports: Hx Appendectomy - 1 week ago, Hx Cholecystectomy - Immunizations Hx Pneumococcal Vaccination: 09/20/17 Review of Systems - Review of Systems Notes: Constitutional: Negative for fever. HENT: Negative for sore throat. Eyes: Negative for visual changes. Cardiovascular: Negative for chest pain. Respiratory: Negative for shortness of breath. Gastrointestinal: Positive for diarrhea. Negative for abdominal pain, nausea, vomiting. Genitourinary: Negative for dysuria. Musculoskeletal: Negative for back pain. Skin: Negative for rash. Neurological: Negative for headaches, weakness or numbness. 10 point ROS negative except as marked above and in HPI. Physical Exam - Vital signs Vitals: Temp Pulse Resp BP Pulse Ox 98.1 F 84 18 143/68 H 96 07/14/19 13:19 07/14/19 13:19 07/14/19 13:19 07/14/19 13:19 07/14/19 13:19 - Notes Notes: GENERAL: Well-appearing, well-nourished and in no acute distress. HEAD: Atraumatic, normocephalic. EYES: Extraocular movements intact, sclera anicteric, conjunctiva are normal. NECK: Normal range of motion, supple without lymphadenopathy or JVD. LUNGS: Breath sounds clear to auscultation bilaterally and equal. No wheezes rales or rhonchi. HEART: Regular rate and rhythm without murmurs, rubs or gallops. ABDOMEN: Soft, nontender. No guarding, no rebound. No masses appreciated. EXTREMITIES: Normal range of motion, no pitting or edema. No clubbing or cyanosis. NEUROLOGICAL: Cranial nerves II through XII grossly intact. Normal speech, normal gait. PSYCH: Normal mood, normal affect. SKIN: Warm, Dry, normal turgor, no rashes or lesions noted. Course - Re-evaluation Re-evalutation: 07/14/19 Nontoxic, well-appearing 73-year-old male presents with diarrhea and 17 pound weight loss over the past 4 months. Patient was sent from the [facility] for stool culture and CT scan. Patient had a colonoscopy approximately 4 years ago and was told to return in 5 years at the [facility]. Patient was told he had polyps that were precancerous. Patient denies any recent antibiotic use or travel outside of the country. Patient denies any blood in his stool or abdominal pain. Abdomen soft nontender. CT scan ordered. CBC shows mild anemia with a hemoglobin of 12.3 with no leukocytosis. CMP is reassuring. UA shows glucose, trace ketones, small amount of blood. Stool cultures were also sent including for C. difficile. 07/14/19 16:42 stool sample shows no white blood cells or blood. 07/14/19 16:[address] elevations with a rate of 80. 07/14/19 18:05 Discussed patient with attending, Dr. Dunn, who recommends treating patient prophylactically for C. difficile with Cipro and Flagyl. Discussed all results including CT scan at length with patient and patient's . Patient was provided with a copy of the CT results. Also addressed concerns for C. difficile with patient and patient's . Patient also encouraged to make appointment with GI/general surgery for colonoscopy. Strict return precautions were discussed. All questions/concerns addressed prior to discharge. Patient and patient's voiced understanding and agree with plan of care. - Vital Signs Vital signs: Temp Pulse Resp BP Pulse Ox 98.1 F 84 18 143/68 H 96 07/14/19 13:30 07/14/19 13:30 07/14/19 13:30 07/14/19 13:30 07/14/19 13:30 - Laboratory Result Diagrams: 07/14/19 14:18 07/14/19 14:18 Laboratory results interpreted by wa: 07/14/19 07/14/19 07/14/19 14:18 14:18 14:18 Hgb 12.3 L Hct 37.6 L MCV 76 L MCH 24.9 L RDW 18.0 H Plt Count 146 L Glucose 113 H Urine Glucose (UA) 50 H Urine Ketones TRACE H Urine Blood SMALL H Discharge - Discharge Clinical Impression: Diarrhea Qualifiers: Diarrhea type: unspecified type Qualified Code(s): R19.7 - Diarrhea, unspecified Condition: Stable Disposition: HOME, SELF-CARE Instructions: Diarrhea, Nonspecific ([facility]), C. (Clostridium) Difficile Infection ([facility]) Additional Instructions: Your work-up today was reassuring. We are going to treat you prophylactically for C. difficile with Flagyl and Cipro. We are also testing your stool cultures for C. difficile. Please finish all doses of antibiotics unless we call you to stop them. Please call GI doctor or surgeon for colonoscopy as soon as possible. Return immediately to ER if you start having any worsening symptoms, including worsening diarrhea, blood in stool, nausea/vomiting, blood in vomit, abdominal pain, chest pain, shortness of breath, or any other symptoms that are concerning to you. Prescriptions: Ciprofloxacin HCl [Cipro 500 mg Tablet] 500 mg PO BID #20 tablet Metronidazole [Flagyl 500 mg Tablet] 500 mg PO TID #30 tablet [facility]errals: [facility] [[facility] Care Provider] - Follow up in 3-5 days MARISOL ZHOU MD [ACTIVE STAFF] - Follow up in 3-5 days
--- NOTE | 2019-07-14 17:39 | RADIOLOGY REPORT (SQ) ---
EXAM DESCRIPTION: CT ABD/PELVIS WITH IV ONLY COMPLETED DATE/TIME: 07/14/2019 5:05 pm REASON FOR STUDY: diarrhea, weight loss 17 lb in 4 months COMPARISON: 10/15/2018 TECHNIQUE: CT scan of the abdomen and pelvis performed using helical scanning technique with dynamic intravenous contrast injection. No oral contrast. Images reviewed with lung, soft tissue, and bone windows. Reconstructed coronal and sagittal MPR images reviewed. Delayed images for evaluation of the urinary system also acquired. All images stored on PACS. All CT scanners at this facility use dose modulation, iterative reconstruction, and/or weight based d osing when appropriate to reduce radiation dose to as low as reasonably achievable (ALARA). [facility]: Dose Right [facility]: CareDose [facility]: Dose Right [facility]: Teradose 4D [facility]: [employer] CONTRAST TYPE AND DOSE: contrast/concentration: Isovue 300.00 mg/ml; Total Contrast Delivered: 98.0 ml; Total Saline Delivered: 72.0 ml RENAL FUNCTION: BUN 13 creatinine 0.8 RADIATION DOSE: CT Rad equipment meets quality standard of care and radiation dose reduction techniq ues were employed. CTDIvol: 16.4 - 18.2 mGy. DLP: 2022 mGy-cm.. LIMITATIONS: None. FINDINGS: LOWER CHEST: No significant findings. No nodules or infiltrates. LIVER: Normal size. No masses. No dilated ducts. SPLEEN: Normal size. No focal lesions. PANCREAS: No masses. No significant calcifications. No adjacent inflammation or peripancreatic fluid collections. Pancreatic duct not dilated. GALLBLADDER: Surgically absent. ADRENAL GLANDS: No significant masses or asymmetry. RIGHT KIDNEY AND URETER: No solid masses. No significant calcifications. No hydronephrosis or hyd roureter. LEFT KIDNEY AND URETER: No solid masses. No significant calcifications. No hydronephrosis or hydr oureter. AORTA AND VESSELS: No aneurysm. No dissection. Renal arteries, SMA, celiac without stenosis. RETROPERITONEUM: No retroperitoneal adenopathy, hemorrhage or masses. BOWEL AND PERITONEAL CAVITY: Descending and sigmoid diverticulosis with no acute associated inflammat ion. No obvious bowel mass. APPENDIX: Surgically absent. PELVIS: No mass. No free fluid. Normal bladder. ABDOMINAL WALL: Small umbilical hernia containing fat. BONES: No significant or acute findings. OTHER: No other significant finding. IMPRESSION: Diverticulosis coli. No evidence of acute inflammation. Small umbilical hernia. TECHNICAL DOCUMENTATION: JOB ID: [id number] Quality ID # [id number]: Final reports with documentation of one or more dose reduction techniques (e.g., Au tomated exposure control, adjustment of the mA and/or kV according to patient size, use of iterative reconstruction technique) 2010 [employer]- All Rights Reserved Reading location - IP/workstation name: [email or web address]
[2019-07-14 19:07] VITALS: BP 126/58
[2019-07-14 19:35] LABS: C DIFFICILE GDH NEGATIVE (NEGATIVE)
--- NOTE | 2019-07-14 22:32 | EKG REPORT ---
SEVERITY:- ABNORMAL ECG - SINUS RHYTHM FIRST DEGREE AV BLOCK NONSPECIFIC T ABNORMALITIES, DIFFUSE LEADS : Confirmed by: Katya Lancaster MD 14-Jul-2019 22:32:01
== END 2019-07-14 19:09 | disposition home or self-care (01) ==
LOC: ER 13:18
DX: R19.7 Diarrhea, unspecified (principal); R63.4 Abnormal weight loss; R63.0 Anorexia; R42 Dizziness and giddiness; Z98.890 Other specified postprocedural states; I10 Essential (primary) hypertension; E11.9 Type 2 diabetes mellitus without complications
CPT/HCPCS: 93005; 99284; 96374; 96375; 36415; 87045; 89055; 87205; 85025; 82272; 80053; 81001; 87324; 87449; 74177; 93010; J1200; J2930; S0028

== ENCOUNTER 2019-08-14 07:22 | Day surgery (SDC) | payer MEDICARE, OTHER ==
[~2019-08-14 07:22] MED LIST: LIDOCAINE 2% INJ-PF (100 MG/5 ML) SYRINGE ONE; PROPOFOL INJ 200 MG/20 ML VIAL IV ONE
--- NOTE | 2019-08-14 08:25 | RADIOLOGY REPORT (SQ) ---
EXAM DESCRIPTION: CHEST SINGLE VIEW COMPLETED DATE/TIME: 08/14/2019 7:53 am REASON FOR STUDY: PREOP COMPARISON: 10/15/2018. EXAM PARAMETERS: NUMBER OF VIEWS: One view. TECHNIQUE: Single frontal radiographic view of the chest acquired. RADIATION DOSE: NA LIMITATIONS: None. FINDINGS: LUNGS AND PLEURA: No opacities, masses or pneumothorax. No pleural effusion. MEDIASTINUM AND HILAR STRUCTURES: No masses. Contour normal. HEART AND VASCULAR STRUCTURES: Heart normal in size. Normal vasculature. BONES: No acute findings. HARDWARE: None in the chest. OTHER: No other significant finding. IMPRESSION: NO ACUTE RADIOGRAPHIC FINDING IN THE CHEST. TECHNICAL DOCUMENTATION: JOB ID: [id number] [employer]- All Rights Reserved Reading location - IP/workstation name: [email or web address]
--- NOTE | 2019-08-14 09:31 | Discharge Summary ---
Discharge Summary (SDC) - Discharge Final Diagnosis: Gastritis, duodenitis, diverticulosis. Date of Surgery: 08/14/19 Discharge Date: 08/14/19 Condition: Stable Prescriptions: Famotidine 40 mg PO WSUPPER #30 tablet Omeprazole 40 mg PO DAILY 30 Days #30 capsule. Referrals: ALONSO ESQUIVEL DO [Primary Care Provider] - Discharge Diet: As Tolerated Respiratory Treatments at Home: Deep Breathing/Coughing, Incentive Spirometer Discharge Activity: Activity As Tolerated Report the Following to Your Physician Immediately: Shortness of Breath, Nausea, Vomiting, Fever over 101 Degrees, Unusual Bleeding
--- NOTE | 2019-08-14 09:37 | Operative Report ---
Nonrecallable Operative Report DATE OF SURGERY: 08/14/19 PREOPERATIVE DIAGNOSIS: Melena, weight loss POSTOPERATIVE DIAGNOSIS: 1. The same. 2. Gastritis. 3. Duodenitis. 4. Diverticulosis, without sign of diverticulitis. 5. No sign of new or old blood in the colon. OPERATION: 1. EGD with biopsy. 2. Colonoscopy to the cecum. SURGEON: DEBBI MORLEY ANESTHESIA: LMAC TISSUE REMOVED OR ALTERED: 1. Antral biopsy. 2. Duodenal bulb biopsy. COMPLICATIONS: None apparent ESTIMATED BLOOD LOSS: Minimal PROCEDURE: Drains/implants: None. Procedure in detail: After informed consent was obtained, the patient was brought to the operating room and laid in the left lateral decubitus position. The endoscope was passed down the oropharynx, down the esophagus, and into the stomach. The stomach was insufflated with air. Immediately there was noted to be petechiae, prominent gastric folds, and acute inflammation in the antrum of the stomach. The scope was pushed through the pylorus, into the duodenum. The first portion of the duodenum as well as the second portion of the duodenum were acutely inflamed. Biopsy was taken in the duodenal bulb for pathology. There were inflammatory appearing polyps within the first portion of the duodenum. These were also sampled. The scope was withdrawn into the antrum of the stomach, where a biopsy was taken to rule out H. pylori. A retroflexion maneuver was then performed in the stomach. No large hiatal hernias were identified. The scope was withdrawn into the esophagus. The distal esophagus appeared normal. There is no evidence of reflux esophagitis. The scope was pulled up the remainder of the esophagus. The remainder of the esophagus was smooth in contour without masses, lesions, or other abnormalities. The scope was removed from the oropharynx, and this portion of the procedure was concluded. The colonoscope was inserted into the rectum. The scope was passed up the rectum, sigmoid colon, descending colon, across the transverse colon, down the ascending colon, and into the cecum. The ileocecal valve and appendiceal orifice were identified. The scope was then withdrawn, circumferentially noting the mucosa. The prep was good. The scope was withdrawn past the ascending colon, transverse colon, down the descending colon, and into the sigmoid colon. In the sigmoid colon there were a few scattered diverticula, however there was no sign of acute/active diverticulitis. The scope was withdrawn down into the rectum. A retroflexion maneuver was performed, noting no significant internal hemorrhoids. Scope was straightened, air was suctioned from the rectum, the scope was removed, and the procedure was concluded. Please note there were no masses, lesions, ulcerations, active bleeding, or old blood within the colon. All sponge, instrument, and needle counts were correct x2. Condition: Stable. Recommendation repeat colonoscopy in 5 years, due to a personal history of colon polyps.
[2019-08-14 10:01] VITALS: BP 140/71
--- NOTE | 2019-08-14 12:52 | EKG REPORT ---
SEVERITY:- ABNORMAL ECG - SINUS RHYTHM BORDERLINE LEFT AXIS DEVIATION PROBABLE POSTERIOR INFARCT NONSPECIFIC T ABNORMALITIES, LATERAL LEADS : Confirmed by: Kojo Huddleston MD 14-Aug-2019 12:51:41
== END 2019-08-14 10:25 | disposition home or self-care (01) ==
LOC: END 07:22
PROVIDERS: ATTEND Surgery
DX: K29.70 Gastritis, unspecified, without bleeding (principal); K29.80 Duodenitis without bleeding; K57.30 Diverticulosis of large intestine without perforation or abscess without bleeding; D64.9 Anemia, unspecified; K92.1 Melena; Z86.010 Personal history of colon polyps; I45.6 Pre-excitation syndrome; E11.9 Type 2 diabetes mellitus without complications; Z09 Encounter for follow-up examination after completed treatment for conditions other than malignant neoplasm
CPT/HCPCS: 43239; 45380; 82962; 88342 ×2; 88305 ×2; 71045; 93005; 93010; 00813; J2001; J2704; 813

== ENCOUNTER 2020-06-05 06:38 | Emergency (ER) | payer MEDICARE ==
[2020-06-05] MEDS ORDERED: NORMAL SALINE 500 ML IV ONE (08:07)
[2020-06-05 08:27] LABS: ALBUMIN 3.5 g/dL (3.5-5.0); ALKALINE PHOSPHATASE 49 U/L (38-126); ANION GAP 12 (5-19); ASPARTATE AMINO TRANSFERASE 39 U/L (17-59); BILIRUBIN,DIRECT 0.1 mg/dL (0.0-0.4); BILIRUBIN,TOTAL 0.7 mg/dL (0.2-1.3); BLOOD UREA NITROGEN 15 mg/dL (7-20); CALCIUM 9.2 mg/dL (8.4-10.2); CARBON DIOXIDE 26 mmol/L (22-30); CHLORIDE 104 mmol/L (98-107); GLUCOSE 75 mg/dL (75-110); POTASSIUM 3.6 mmol/L (3.6-5.0); TOTAL PROTEIN 6.1 g/dL (6.3-8.2)
[2020-06-05 08:29] LABS: ABSOLUTE LYMPHOCYTES (AUTO) 1.3 10^3/uL (0.5-4.7); ABSOLUTE MONOCYTES (AUTO) 0.8 10^3/uL (0.1-1.4); ABSOLUTE NEUT (AUTO) 8.9 10^3/uL (1.7-8.2); BASOPHILS % (AUTO) 0.1 % (0-2); EOSINOPHILS % (AUTO) 0.1 % (0-6); HEMATOCRIT 41.6 % (37.9-51.0); HEMOGLOBIN 14.1 g/dL (13.5-17.0); LYMPHOCYTES % (AUTO) 12.2 % (13-45); MEAN CORPUSCULAR HEMOGLOBIN 31.8 pg (27.0-33.4); MEAN CORPUSCULAR HGB CONC 33.9 g/dL (32.0-36.0); MEAN CORPUSCULAR VOLUME 94 fl (80-97); MONOCYTES % (AUTO) 6.9 % (3-13); PLATELET COUNT 132 10^3/uL (150-450); RED BLOOD COUNT 4.43 10^6/uL (4.35-5.55); RED CELL DISTRIBUTION WIDTH 13.7 % (11.5-14.0); SEGMENTED NEUTROPHILS % (AUTO) 80.7 % (42-78); TOTAL CELLS COUNTED % (AUTO) 100 %
[2020-06-05 08:38] LABS: TROPONIN I 0.018 ng/mL
[2020-06-05] MEDS ORDERED: NORMAL SALINE 1000 ML 1,000 ML IV ONE (08:42)
[2020-06-05] MEDS ORDERED: VANCOMYCIN HCL INJ 1000 MG VIAL IV ONE (08:49)
[2020-06-05] MEDS ORDERED: CEFEPIME 1 GM/D5W RTU 1 GM/50 ML RTUPB IV ONE (08:49)
--- NOTE | 2020-06-05 09:00 | RADIOLOGY REPORT (SQ) ---
EXAM DESCRIPTION: ACUTE ABDOMEN SERIES IMAGES COMPLETED DATE/TIME: 06/05/2020 8:28 am REASON FOR STUDY: altered mental status/ found on floor COMPARISON: Abdominal films 10/11/2018 Chest 08/14/2019 NUMBER OF VIEWS: Three views. TECHNIQUE: Frontal chest, supine abdomen and upright/decubitus abdomen radiographic images acquired. LIMITATIONS: None. FINDINGS: CHEST: Lungs clear of infiltrates. FREE AIR: None. No abnormal gas collections. BOWEL GAS PATTERN: Nonobstructive pattern. No dilated loops or air fluid levels. CALCIFICATIONS: No suspicious calcifications. HARDWARE: None in the abdomen. SOFT TISSUES: No gross mass or suggestion of organomegaly. BONES: No acute fracture. No worrisome bone lesions. OTHER: No other significant finding. IMPRESSION: NO RADIOGRAPHIC EVIDENCE FOR ACUTE ABDOMINAL DISEASE. TECHNICAL DOCUMENTATION: JOB ID: [id number] 2010 [employer]- All Rights Reserved Reading location - IP/workstation name: [id number]
--- NOTE | 2020-06-05 09:09 | RADIOLOGY REPORT (SQ) ---
EXAM DESCRIPTION: CT HEAD WITHOUT IMAGES COMPLETED DATE/TIME: 06/05/2020 8:29 am REASON FOR STUDY: altered mental status/ found on floor COMPARISON: None. TECHNIQUE: Axial images acquired through the brain without intravenous contrast. Images reviewed wi th bone, brain and subdural windows. Additional sagittal and coronal reconstructions were generated. Images stored on PACS. All CT scanners at this facility use dose modulation, iterative reconstruction, and/or weight based d osing when appropriate to reduce radiation dose to as low as reasonably achievable (ALARA). [facility]: Dose Right [facility]: CareDose [facility]: Dose Right [facility]: Teradose 4D [facility]: [employer] RADIATION DOSE: CT Rad equipment meets quality standard of care and radiation dose reduction techniq ues were employed. CTDIvol: 53.2 mGy. DLP: 1070 mGy-cm. mGy. LIMITATIONS: None. FINDINGS: Acute right hemispheric subdural collection with acute hyperdense hemorrhage, measuring up to 10 mm thick over the right frontal convexity. There is mild local mass effect with flattening of gyri over right frontoparietal region, very mild right to left subfalcine shift of 3 mm. No acute brain parenchymal hemorrhage. This finding was called Dr. Gutierres in the emergency room as a critical result, 0845 hours 06/05/2020. VENTRICLES: Normal size and contour. CEREBRUM: No CT evidence of acute large territory change. Mild bifrontal and biparietal chronic smal l vessel ischemic change. No acute brain parenchymal hemorrhage CEREBELLUM: No masses. No hemorrhage. No alteration of density. No evidence for acute infarction. EXTRAAXIAL SPACES: Acute right hemispheric subdural collection with acute hyperdense hemorrhage, ulises uring up to 10 mm thick over the right frontal convexity. There is mild local mass effect with flatte ajay of gyri over right frontoparietal region, very mild right to left subfalcine shift of 3 mm. ORBITS AND GLOBE: No intra- or extraconal masses. Normal contour of globe without masses. CALVARIUM: No fracture. PARANASAL SINUSES: No fluid or mucosal thickening. SOFT TISSUES: No mass or hematoma. OTHER: No other significant finding. IMPRESSION: Large acute right convexity acute subdural hemorrhage, measuring up 10 mm in thickness. Mild right to left subfalcine shift EVIDENCE OF ACUTE STROKE: NO. COMMENT: Pertinent findings on the imaging study reported as a CRITICAL RESULT to ELIZABETH GUTIERRES MD at8:45 on 06/05/2020. Category of Critical Result: Acute right hemispheric subdural hemorrhage Quality ID # [id number]: Final reports with documentation of one or more dose reduction techniques (e.g., Au tomated exposure control, adjustment of the mA and/or kV according to patient size, use of iterative reconstruction technique) TECHNICAL DOCUMENTATION: JOB ID: [id number] 2010 [email or web address]- All Rights Reserved Reading location - IP/workstation name: [id number]
[2020-06-05 09:10] LABS: APPEARANCE,URINE CLEAR; BILIRUBIN,URINE NEGATIVE (NEGATIVE); COLOR,URINE YELLOW; GLUCOSE, URINE NEGATIVE (NEGATIVE); KETONES,URINE TRACE mg/dL (NEGATIVE); LEUKOCYTE ESTERASE,URINE NEGATIVE (NEGATIVE); NITRITE,URINE NEGATIVE (NEGATIVE); PROTEIN,URINE NEGATIVE (NEGATIVE); URINE SPECIFIC GRAVITY 1.015; UROBILINOGEN,URINE NEGATIVE mg/dL (<2.0)
[2020-06-05 09:11] LABS: VENOUS BLOOD BASE EXCESS 1.5 mmol/L; VENOUS BLOOD HCO3 25.5 mmol/L (20-32); VENOUS BLOOD PCO2 38.2 mmHg (35-63); VENOUS BLOOD PH 7.44 (7.30-7.42)
--- NOTE | 2020-06-05 09:11 | RADIOLOGY REPORT (SQ) ---
EXAM DESCRIPTION: CT CERVICAL SPINE WITHOUT IMAGES COMPLETED DATE/TIME: 06/05/2020 8:29 am REASON FOR STUDY: found on floor/ neck pain COMPARISON: CT brain samedate TECHNIQUE: Axial images acquired through the cervical spine without intravenous contrast. Images re viewed with lung, soft tissue and bone windows. Reconstructed coronal and sagittal MPR images review ed. Images stored on PACS. All CT scanners at this facility use dose modulation, iterative reconstruction, and/or weight based d osing when appropriate to reduce radiation dose to as low as reasonably achievable (ALARA). [facility]: Dose Right [facility]: CareDose [facility]: Dose Right [facility]: Teradose 4D [facility]: [employer] RADIATION DOSE: CT Rad equipment meets quality standard of care and radiation dose reduction techniq ues were employed. CTDIvol: 22.2 mGy. DLP: 425 mGy-cm. mGy. LIMITATIONS: None. FINDINGS: ALIGNMENT: Anatomic. MINERALIZATION: Normal. VERTEBRAL BODIES: No fractures or dislocation. DISCS: Disc space loss of height with anterior and posterior osteophyte formation at C6-7 causing mil d central canal narrowing and high-grade bilateral foraminal stenosis. FACETS, LATERAL MASSES, POSTERIOR ELEMENTS: No fractures. No dislocation. No acute findings. HARDWARE: None in the spine. VISUALIZED RIBS: No fractures. LUNG APICES AND SOFT TISSUES: No significant or acute findings. OTHER: No other significant finding. IMPRESSION: NO ACUTE FINDINGS IN THE CERVICAL SPINE. TECHNICAL DOCUMENTATION: JOB ID: [id number] Quality ID # [id number]: Final reports with documentation of one or more dose reduction techniques (e.g., Au tomated exposure control, adjustment of the mA and/or kV according to patient size, use of iterative reconstruction technique) 2010 [email or web address]- All Rights Reserved Reading location - IP/workstation name: [id number]
[2020-06-05] MEDS ORDERED: TRANEXAMIC ACID INJ/PF 1,000 MG/10 ML SDV IV ONE (09:15)
[2020-06-05 09:32] LABS: INTERNATIONAL RATION (INR) 1.02; PROTHROMBIN TIME 13.6 SEC (11.4-15.4)
[2020-06-05 09:33] LABS: PARTIAL THROMBOPLASTIN TIME 28.7 SEC (23.5-35.8)
--- NOTE | 2020-06-05 09:45 | EKG REPORT ---
SEVERITY:- ABNORMAL ECG - SINUS RHYTHM BORDERLINE LEFT AXIS DEVIATION [address] AV BLOCK : Confirmed by: Zahra Cavanaugh 05-Jun-2020 09:44:51
[2020-06-05] MEDS ORDERED: LEVETIRACETAM 1000 MG/NACL-ISO 1,000 MG/100 ML RTUPB IV SCH (10:00)
--- NOTE | 2020-06-05 10:03 | RADIOLOGY REPORT (SQ) ---
EXAM DESCRIPTION: CT CHEST WITHOUT; CT ABD/PELVIS NO ORAL OR IV IMAGES COMPLETED DATE/TIME: 06/05/2020 9:03 am REASON FOR STUDY: AMS/ elevated lactic acid; AMS/Elevated lactic acid COMPARISON: CT ANGIO CHEST 10/05/2008 CT ABDOMEN PELVIS 10/07/2018, 10/15/2018, 07/14/2019 THREE-WAY ABDOMEN series 06/05/2020 TECHNIQUE: CT scan of the chest performed without intravenous contrast using helical scanning techni que. Images reviewed with lung, soft tissue and bone windows. Reconstructed coronal and sagittal MPR images reviewed. All images stored on PACS. CT scan of the abdomen and pelvis performed without intravenous contrast and without oral contrast us ing helical scanning technique with dynamic intravenous contrast injection. Images reviewed with brenda g, soft tissue and bone windows. Reconstructed coronal and sagittal MPR images reviewed. All images stored on PACS. All CT scanners at this facility use dose modulation, iterative reconstruction, and/or weight based d osing when appropriate to reduce radiation dose to as low as reasonably achievable (ALARA). [facility]: Dose Right [facility]: CareDose [facility]: Dose Right [facility]: Teradose 4D [facility]: Smart Bolt HR RADIATION DOSE: CT Rad equipment meets quality standard of care and radiation dose reduction techniq ues were employed. CTDIvol: 12.2 - 14.0 mGy. DLP: 1127 mGy-cm. mGy. LIMITATIONS: No technical limitations. FINDINGS: CHEST: AXILLAE: No adenopathy. CHEST WALL: No masses. No subcutaneous air. LUNGS: No nodules or masses. No pneumothorax. No infiltrates. PLEURA: No effusions. No calcifications. THYROID: No masses or significant asymmetry. HILAR AND MEDIASTINAL STRUCTURES: No identified masses or abnormal nodes. AORTA AND GREAT VESSELS: No aneurysm. HEART: No pericardial effusion. HARDWARE AND LIFELINES: None. BONES: No significant finding. OTHER: No other significant finding. ABDOMEN AND PELVIS: LIVER: Normal size. No masses. No dilated ducts. SPLEEN: Normal size. No focal lesions. PANCREAS: No masses. No significant calcifications. No adjacent inflammation or peripancreatic flui d collections. Pancreatic duct not dilated. GALLBLADDER: Surgically absent. ADRENAL GLANDS: No significant masses or asymmetry. RIGHT KIDNEY AND URETER: No solid masses. Assessment limited by lack of IV contrast. No significant calcifications. No hydronephrosis or hydroureter. LEFT KIDNEY AND URETER: No solid masses. Assessment limited by lack of IV contrast. 5 mm left midpo le intrarenal nonobstructive stone. No hydronephrosis or hydroureter. AORTA AND VESSELS: No aneurysm. RETROPERITONEUM: No retroperitoneal adenopathy, hemorrhage or masses. APPENDIX: Not identified LARGE AND SMALL BOWEL: Descending and sigmoid colon diverticuli without CT signs of acute diverticuli tis. No dilatation. No masses. No wall thickening. ABDOMINAL WALL: No hernia or masses. PERITONEAL CAVITY: No free air. No free fluid. No peritoneal implants or masses. PELVIS: No mass or free fluid. Normal bladder. BONES: No significant or acute findings. OTHER: No other significant finding. IMPRESSION: No acute findings over the chest abdomen or pelvis TECHNICAL DOCUMENTATION: JOB ID: [id number] Quality ID # [id number]: Final reports with documentation of one or more dose reduction techniques (e.g., Au tomated exposure control, adjustment of the mA and/or kV according to patient size, use of iterative reconstruction technique) 2010 [employer]- All Rights Reserved Reading location - IP/workstation name: [id number]
--- NOTE | 2020-06-05 10:03 | RADIOLOGY REPORT (SQ) ---
EXAM DESCRIPTION: CT CHEST WITHOUT; CT ABD/PELVIS NO ORAL OR IV IMAGES COMPLETED DATE/TIME: 06/05/2020 9:03 am REASON FOR STUDY: AMS/ elevated lactic acid; AMS/Elevated lactic acid COMPARISON: CT ANGIO CHEST 10/05/2008 CT ABDOMEN PELVIS 10/07/2018, 10/15/2018, 07/14/2019 THREE-WAY ABDOMEN series 06/05/2020 TECHNIQUE: CT scan of the chest performed without intravenous contrast using helical scanning techni que. Images reviewed with lung, soft tissue and bone windows. Reconstructed coronal and sagittal MPR images reviewed. All images stored on PACS. CT scan of the abdomen and pelvis performed without intravenous contrast and without oral contrast us ing helical scanning technique with dynamic intravenous contrast injection. Images reviewed with brenda g, soft tissue and bone windows. Reconstructed coronal and sagittal MPR images reviewed. All images stored on PACS. All CT scanners at this facility use dose modulation, iterative reconstruction, and/or weight based d osing when appropriate to reduce radiation dose to as low as reasonably achievable (ALARA). [facility]: Dose Right [facility]: CareDose [facility]: Dose Right [facility]: Teradose 4D [facility]: Smart [employer] RADIATION DOSE: CT Rad equipment meets quality standard of care and radiation dose reduction techniq ues were employed. CTDIvol: 12.2 - 14.0 mGy. DLP: 1127 mGy-cm. mGy. LIMITATIONS: No technical limitations. FINDINGS: CHEST: AXILLAE: No adenopathy. CHEST WALL: No masses. No subcutaneous air. LUNGS: No nodules or masses. No pneumothorax. No infiltrates. PLEURA: No effusions. No calcifications. THYROID: No masses or significant asymmetry. HILAR AND MEDIASTINAL STRUCTURES: No identified masses or abnormal nodes. AORTA AND GREAT VESSELS: No aneurysm. HEART: No pericardial effusion. HARDWARE AND LIFELINES: None. BONES: No significant finding. OTHER: No other significant finding. ABDOMEN AND PELVIS: LIVER: Normal size. No masses. No dilated ducts. SPLEEN: Normal size. No focal lesions. PANCREAS: No masses. No significant calcifications. No adjacent inflammation or peripancreatic flui d collections. Pancreatic duct not dilated. GALLBLADDER: Surgically absent. ADRENAL GLANDS: No significant masses or asymmetry. RIGHT KIDNEY AND URETER: No solid masses. Assessment limited by lack of IV contrast. No significant calcifications. No hydronephrosis or hydroureter. LEFT KIDNEY AND URETER: No solid masses. Assessment limited by lack of IV contrast. 5 mm left midpo le intrarenal nonobstructive stone. No hydronephrosis or hydroureter. AORTA AND VESSELS: No aneurysm. RETROPERITONEUM: No retroperitoneal adenopathy, hemorrhage or masses. APPENDIX: Not identified LARGE AND SMALL BOWEL: Descending and sigmoid colon diverticuli without CT signs of acute diverticuli tis. No dilatation. No masses. No wall thickening. ABDOMINAL WALL: No hernia or masses. PERITONEAL CAVITY: No free air. No free fluid. No peritoneal implants or masses. PELVIS: No mass or free fluid. Normal bladder. BONES: No significant or acute findings. OTHER: No other significant finding. IMPRESSION: No acute findings over the chest abdomen or pelvis TECHNICAL DOCUMENTATION: JOB ID: [id number] Quality ID # [id number]: Final reports with documentation of one or more dose reduction techniques (e.g., Au tomated exposure control, adjustment of the mA and/or kV according to patient size, use of iterative reconstruction technique) 2010 [employer]- All Rights Reserved Reading location - IP/workstation name: [id number]
--- NOTE | 2020-06-05 12:29 | ER Document Report ---
Entered by JJ CORREIA SCRIBE 06/05/20 0807 Acting as scribe for:ELIZABETH GUTIERRES MD ED General - General Chief Complaint: Weakness Stated Complaint: CONFUSION Time Seen by Provider: 06/05/20 07:21 Primary Care Provider: ALONSO ESQUIVEL DO [Primary Care Provider] - Follow up as needed Mode of Arrival: Medic Information source: Patient, Relative, Emergency Med Personnel Notes: This 74 year old male patient with a history of dementia, hypertension, hyperlipidemia, and type 2 diabetes mellitus presents to the ED today via EMS for evaluation of altered mental status. Family reports that the patient was found kneeling in front of the couch unable to stand up without assistance around 0430 this morning. Patient states "I woke up laying on the floor and I couldn't get up." He does not recall falling and denies any pain or difficulty swallowing. Daughter at bedside reports that the patient has been increasingly agitated over the past x2 weeks and has also been unable to finish certain tasks. She mentions that he has been having more "accidents" and that his gait has been unstable. She expresses concerns about his decreased PO intake, weight loss, and his care at home which is primarily being done by her mother who has MS. TRAVEL OUTSIDE OF THE [place] IN LAST 30 DAYS: No - Related Data Allergies/Adverse Reactions: Iodinated Contrast Media Adverse Reaction (Unknown, Verified 08/14/19 07:30) WOKE UP AND WAS TOLD HAD A REACTION aspirin Adverse Reaction (Verified 08/14/19 07:30) BLEEDING Past Medical History - General Information source: Relative, [facility] Records - Social History Smoking Status: Former Smoker Cigarette use (# per day): No Chew tobacco use (# tins/day): No Smoking Education Provided: No Frequency of alcohol use: None Drug Abuse: None Lives with: Spouse/Significant other Family History: Reviewed & Not Pertinent, DM, Hypertension Patient has homicidal ideation: No - Past Medical History Cardiac Medical History: Reports: Hx Hypercholesterolemia, Hx Hypertension Endocrine Medical History: Reports: Hx Diabetes Mellitus Type 2 GI Medical History: Reports: Hx Gastroesophageal Reflux Disease, Hx Ulcer - stomach Psychiatric Medical History: Reports: Hx Dementia, Hx Depression Past Surgical History: Reports: Hx Appendectomy, Hx Cholecystectomy - Immunizations Hx Pneumococcal Vaccination: 09/20/17 Review of Systems - Review of Systems Constitutional: No symptoms reported EENT: See HPI. denies: Difficulty swallowing Cardiovascular: No symptoms reported Respiratory: No symptoms reported Gastrointestinal: No symptoms reported Genitourinary: No symptoms reported Male Genitourinary: No symptoms reported Musculoskeletal: See HPI. denies: Muscle pain Skin: No symptoms reported Hematologic/Lymphatic: No symptoms reported Neurological/Psychological: See HPI, Other - Altered mental status. denies: Headaches -: Yes All other systems reviewed and negative Physical Exam - Vital signs Vitals: Resp Pulse Ox 14 96 06/05/20 06:41 06/05/20 06:41 - General General appearance: Alert In distress: None - HEENT Head: Normocephalic, Atraumatic Eyes: Normal Pupils: PERRL - Respiratory Respiratory status: No respiratory distress Chest status: Nontender Breath sounds: Normal Chest palpation: Normal - Cardiovascular Rhythm: Regular Heart sounds: Normal auscultation, S1 appreciated, S2 appreciated Murmur: No Friction rub: No Gallop: None auscultated - Abdominal Inspection: Normal Distension: No distension Bowel sounds: Normal Tenderness: Nontender - Abdomen soft Organomegaly: No organomegaly - Back Back: Normal, Nontender - Extremities General upper extremity: Normal inspection General lower extremity: Normal inspection. No: Edema - Neurological Neuro grossly intact: Yes Orientation: AAOx4 Kindred Coma Scale Eye Opening: Spontaneous Marta Coma Scale Verbal: Oriented Kindred Coma Scale Motor: Obeys Commands Kindred Coma Scale Total: 15 Speech: Normal Cranial nerves: Normal. No: Facial palsy, Forehead sparing, Gaze palsy, Sensory deficit Cerebellar coordination: Heel-holly, Finger-nose rhombey Motor strength normal: LUE, RUE, LLE, RLE Additional motor exam normals: Equal glaze sprayer, Dorsiflexion, Plantar flexion. No: Pronator drift, Weakness Sensory: Normal - Psychological Associated symptoms: Normal affect, Normal mood - Skin Skin Temperature: Warm Skin Moisture: Dry Skin Color: Normal Course - Re-evaluation Re-evalutation: 06/05/20 12:21 Patient has remained hemodynamically stable without any worsening neuro signs. 06/05/20 12:29 Patient's GCS remains at 15. - Vital Signs Vital signs: Temp Pulse Resp BP Pulse Ox 98.4 F 81 16 136/70 H 97 06/05/20 10:03 06/05/20 07:02 06/05/20 12:21 06/05/20 12:22 06/05/20 12:21 06/05/20 12:21 Vital signs have remained stable. 06/05/20 12:21 Currently respirations are 12. - Laboratory Result Diagrams: 06/05/20 06:45 06/05/20 06:45 Laboratory results interpreted by me: 06/05/20 06/05/20 06/05/20 06:45 06:45 06:45 WBC 11.0 H Plt Count 132 L Lymph % (Auto) 12.2 L Absolute Neuts (auto) 8.9 H Seg Neutrophils % 80.7 H VBG pH Lactic Acid 4.7 H Total Protein 6.1 L Urine Ketones 06/05/20 06/05/20 06:50 08:45 WBC Plt Count Lymph % (Auto) Absolute Neuts (auto) Seg Neutrophils % VBG pH 7.44 H Lactic Acid Total Protein Urine Ketones TRACE H Laboratory evaluation shows essentially normal labs white blood cell count 11.0 platelet count low at 132 lactic acid was four-point 7 repeat is pending at this time. Patient also has a mildly elevated troponin most recent test shows 0.04. Patient has had a repeat EKG that does not show an acute STEMI. - Diagnostic Test Radiology reviewed: Image reviewed, Reports reviewed Radiology results interpreted by me: 06/05/20 10:24 Acute Abdomen Series 06/05/20 08:01 IMPRESSION: NO RADIOGRAPHIC EVIDENCE FOR ACUTE ABDOMINAL DISEASE. Head CT 06/05/20 08:03 IMPRESSION: Large acute right convexity acute subdural hemorrhage, measuring up 10 mm in thickness. Mild right to left subfalcine shift EVIDENCE OF ACUTE STROKE: NO. Cervical Spine CT 06/05/20 08:05 IMPRESSION: NO ACUTE FINDINGS IN THE CERVICAL SPINE. Chest CT 06/05/20 08:40 IMPRESSION: No acute findings over the chest abdomen or pelvis Abdomen/Pelvis CT 06/05/20 08:41 IMPRESSION: No acute findings over the chest abdomen or pelvis 06/05/20 12:[address] shows an acute large right convex subdural hemorrhage on the right side measuring 10 mm in thickness mild right to left cell fall seen shift. Cervical spine no acute findings process CT no acute findings over the chest abdomen. Abdomen pelvis CT shows no acute process. - EKG Interpretation by Me Additional EKG results interpreted by me: 06/05/20 11:07 Lead EKG shows first-degree AV block ventricular rate 62 QRS interval within normal range QT interval within normal range left axis deviation no acute STEMI. Artifact noted. 06/05/20 12:24 Repeat EKG shows a normal sinus rhythm rate of 56 multiple PACs noted first- degree AV block is still present. Patient has a left axis deviation DE interval prolonged QT RS intervals within normal limits QT interval within normal limits no acute STEMI. - Consults Dr. Frederick, Neurology at [facility] Time consulted: 10:55 Consulted provider: other - accepted transfer Critical Care Note - Critical Care Note Total time excluding time spent on procedures (mins): 49 - Management of patient with altered mental status and an acute subdural hematoma. Also mention patient fluid management concern for infection with elevated lactic acid level therefore patient was empirically treated with IV antibiotics. Discharge - Discharge Clinical Impression: Subdural hematoma, acute, Type 2 diabetes mellitus, Failure to thrive in adult Condition: Critical Disposition: [facility] Referrals: ALONSO ESQUIVEL DO [Primary Care Provider] - Follow up as needed ED NIH Stroke Scale - NIH Stroke Scale *: 1. NIH scale should be completed with appropriate accompanying assessment tools. *: 2. The NIH should reflect what the patient is capable of doing and should not be coached by the clinician. 1a. Level of Consciousness: 0=Alert;keenly responsive -: 1=Drowsy -: 2=Obtunded -: 3=Coma/unresponsive or reflex to noxious stimuli. 1a. Responses: 0 1b. Orientation Questions: a. What month is it? -: b. How old are you? -: 0=Answers both questions correctly. -: 1=Answers one question correctly or patient is intubated or has orotracheal trauma. -: 2=Answers neither question correctly. 1b. Responses: 0 1c. Response to commands: a. Open and close eyes? -: b. Web Worker and release hand? -: Credit is given despite weakness. Demonstration of task is permitted. Substitute command if hands cannot be used. -: 0=Performs both tasks correctly -: 1=Performs one task correctly -: 2=Performs neither task correctly 1c. Responses: 0 2. Gaze: Establish eye contact and instruct patient to "Follow my finger" -: 0=Normal -: 1=Partial gaze palsy. Gaze is abnormal in one or both eyes, but where forced deviation or total gaze paresis is not present. -: 2=Forced deviation or total gaze paresis. 2. Responses: 0 3. Visual Baird: Sees fingers in all four quadrants. -: 0=No visual loss. -: 1=Partial hemianopsia. -: 2=Complete hemianopsia. -: 3=Bilateral hemianopsia (including Cortical blindness) 3. Responses: 0 4. Facial Movement: Instruct patient to: -: a. Show me your teeth -: b. Raise your eyebrows -: c. Close your eyes -: d. Smile -: 0=Normal symmetrical movement -: 1=Minor paralysis (flattened nasolabial fold, asymmetry on smiling). -: 2=Partial paralysis (total or near total paralysis of lower face). -: 3=Complete paralysis of upper and lower face 4. Responses: 0 5. Motor functions (left arm): Alternate sides and extend each arm with palms down (90 degrees if sitting or 45 degrees for supine). -: 0=No drift;limb holds for full 10 seconds. -: 1=Drift; limb holds but drifts down before full 10 seconds, but does not hit bed. -: 2=Some effort against gravity; limb cannot get to or maintain position. -: 3=No effort against gravity; limb falls. -: 4=No movement. -: UN=Amputation, joint fusion, explain in comments. 5. Responses (left arm): 0 5. Motor Functions (right arm): Alternate sides and extend each arm with palms down (90 degrees if sitting or 45 degrees for supine). -: 0=No drift;limb holds for full 10 seconds. -: 1=Drift; limb holds but drifts down before full 10 seconds, but does not hit bed. -: 2=Some effort against gravity; limb cannot get to or maintain position. -: 3=No effort against gravity; limb falls. -: 4=No movement. -: UN=Amputation, joint fusion, explain in comments. 5. Responses (right arm): 0 6. Motor Functions (left leg): With patient lying supine, alternate sides and extend each leg (30 degrees always while supine). -: 0=No drift, leg holds position for full 5 seconds -: 1=Drift; leg falls before full 5 seconds but does not hit bed. -: 2=Some effort against gravity, leg falls to bed but some effort against gravity. -: 3=No effort against gravity, leg falls to bed immediately. -: 4=No movement. -: UN=Amputation, joint fusion; explain in comments. 6. Responses (left leg): 0 6. Motor Functions (right leg): With patient lying supine, alternate sides and extend each leg (30 degrees always while supine). -: 0=No drift, leg holds position for full 5 seconds -: 1=Drift; leg falls before full 5 seconds but does not hit bed. -: 2=Some effort against gravity, leg falls to bed but some effort against gravity. -: 3=No effort against gravity, leg falls to bed immediately. -: 4=No movement. -: UN=Amputation, joint fusion; explain in comments. 6. Responses (right leg): 0 7. Limb Ataxia: With eyes open instruct patient to: -: a. "Touch your finger to your nose". -: b. "Touch your heel to your holly" -: 0=Absent -: 1=Present in one limb. -: 2=Present in two limbs. -: UN=Amputation or joint fusion; explain in comments. 8. Sensory: Test sensation using pinprick or noxious stimuli. Test as many body parts as possible. -: 0=Normal;no sensory loss -: 1=Mile to moderate sensory loss (patient feels pin prick but is less sharp on affected side). -: 2=Severe or total sensory loss. 8. Responses: 0 9. Best Language: Instruct patient to: -: a. "Describe what you see in this picture." -: b. "Name the items in this picture." -: c. "Read these sentences." -: 0=No aphasia, normal -: 1=Mild to moderate aphasia. -: 2=Severe aphasia -: 3=Mute, global aphasia, no usable speech or auditory comprehension. 10. Articulation, Dysarthia: Instruct patient to: -: "Read these words" or "Repeat these words" -: 0=Normal -: 1=Mild to moderate; patient may slur some words but can be understood without difficulty. -: 2=Severe; patients speech so slurred as to be unintelligible in the absence of dysphasia. -: UN=Intubated or other physical barrier, explain in comments. 10. Responses: 0 - Overall generalized weakness but no lateralization of focal deficits. 11. Extinction or inattention: 0=No abnormality -: 1= Visual, tactile, auditory, spatial, or personal inattention or extinction to bilateral simulation in one or the sensory modalities. -: 2=Profound kristina-inattention or kristina-inattention to more than one modality; does not recognize own hand. Total Score: 0 I personally performed the services described in the documentation, reviewed and edited the documentation which was dictated to the scribe in my presence, and it accurately records my words and actions.
[2020-06-05 12:34] VITALS: BP 136/70
--- NOTE | 2020-06-06 09:10 | EKG REPORT ---
SEVERITY:- ABNORMAL ECG - SINUS RHYTHM MULTIPLE ATRIAL PREMATURE COMPLEXES FIRST DEGREE AV BLOCK : Confirmed by: Zahra Cavanaugh 06-Jun-2020 09:09:50
== END 2020-06-05 12:41 | disposition short-term general hospital (02) ==
LOC: ER 06:38
DX: S06.5X9A Traumatic subdural hemorrhage with loss of consciousness of unspecified duration, initial encounter (principal); X58.XXXA Exposure to other specified factors, initial encounter; R41.82 Altered mental status, unspecified; R26.89 Other abnormalities of gait and mobility; R62.7 Adult failure to thrive; R63.4 Abnormal weight loss; R74.02 Elevation of levels of lactic acid dehydrogenase [LDH]; M54.2 Cervicalgia; I44.0 Atrioventricular block, first degree; I49.1 Atrial premature depolarization; R79.89 Other specified abnormal findings of blood chemistry; E11.9 Type 2 diabetes mellitus without complications; I10 Essential (primary) hypertension; Z87.891 Personal history of nicotine dependence
CPT/HCPCS: 93005; 99285; 96361; 96375; 96365; 96366; 96368; 36415; 87040; 83605; 83690; 85025; 85610; 85730; 80053; 81001; 84484; 82803; 83880; 74022; 70450; 71250; 72125; 74176; 93010; J7030; J7040; J3370; J1953; J0692; J3490